=== PATIENT | female | born 1950 | race Caucasian/White ===

== ENCOUNTER 2021-07-27 21:31 | Inpatient (IN) | payer MEDICARE, OTHER ==
[~2021-07-27] VITALS: Ht 175.3 cm; Wt 110.0 kg
--- NOTE | 2021-07-27 21:35 | PHYS DOC ---
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 fib on Eliquis, presents the ED with complaints of left hip pain after patient slipped out of her chair. Patient was sitting at her sewing table table when she otoniel ched for something on the table and her chair with wheels, slipped out from underneath her. Patient landed in a seated position. Reports she did not hit her head or lose consciousness. Is complaining of right posterior thigh cramps. States she was unable to get up and immediately upon hitting the floor lost control of her bowels and bladder. No prior history of urinary or bowel incontinence or saddle anesthesia. Patient has never injured her back and has no associated midline back pain. Review of Systems: Review of Systems: Constitutional: Denies fever or chills. [] Eyes: Denies change in visual acuity. [] HENT: Denies nasal congestion or sore throat. [] Respiratory: Denies hemoptysis or shortness of breath. [] Cardiovascular: Denies chest pain or edema. [] GI: Denies abdominal pain, bloody stools or diarrhea. [] : Denies dysuria or hematuria Musculoskeletal: Denies midline back pain or joint deformity Integument: Denies rash or diaphoresis Neurologic: Denies neck pain, focal weakness or sensory changes. [] Endocrine: Denies polyuria or polydipsia. [] Lymphatic: Denies swollen glands. [] Psychiatric: Denies depression or anxiety. [] Heart Score: C/O Chest Pain: No Risk Factors: Risk Factors: DM, Current or recent (<one month) smoker, HTN, HLP, family hi story of CAD, obesity. Risk Scores: Score 0 - 3: 2.5% MACE over next 6 weeks - Discharge Home Score 4 - 6: 20.3% MACE over next 6 weeks - Admit for Clinical Observation Score 7 - 10: 72.7% MACE over next 6 weeks - Early Invasive Strategies Physical Exam: PE: Constitutional: Well developed, well nourished, no acute distress, non-toxic appearance. HENT: Normocephalic, atraumatic, no hemotympanum, no hematoma, no evidence of extracranial trauma Eyes: Pulls equal and reactive, EOMI, conjunctiva normal, no discharge. Neck: Normal range of motion, supple, no midline neck pain Cardiovascular: S1/2 present, regular rhythm Lungs & Thorax: Speaking in full sentences, bilateral equal chest rise, no tachy pnea or increased work of breathing Abdomen: soft, no tenderness, obese, no distention Skin: Warm, dry, no erythema, no rash, no bruising Back: No midline spinal step-offs or tenderness, no CVA tenderness, intact rectal tone with no saddle anesthesia on physical exam/log rolled on each side, reports pain over left ischial tuberosity-cannot visualize any bruising, cannot worsen her right posterior thigh cramp Extremities: no cyanosis, no unilateral lower extremity edema Neurologic: GCS15, normal motor function, normal sensory function, no focal deficits noted. [] Psychologic: Affect normal, judgement normal, mood normal. [] EKG: EK A. fib 91 bpm, left axis deviation, normal intervals, no obvious T wave inversion, ST elevation or ST depression, no active chest pain -Performed after patient started dry heaving, 2338 defibrillation 100 bpm, left axis deviation, QTC 473, no obvious ST elevations, ST depressions or T wave inversions, no active chest pain Radiology/Procedures: Radiology/Procedures: IMAGING REPORT Signed PATIENT: CASSIA HAMILTON ACCOUNT: [id number] : 1950 LOCATION: ER AGE: 71 SEX: F EXAM STATUS: REG ER ORD. PHYSICIAN: MARYELLEN GAONA DO REASON: n/v, PROCEDURE: CT HEAD AND CERVICAL SPINE WO RS Compliance Statement: One or more of the following individualized dose reduction techniques were utilized for this examination: 1. Automated exposure control 2. Adjustment of the mA and/or kV according to patient size 3. Use of iterative reconstruction technique CT head and cervical spine without contrast 07/27/2021 12:08 AM INDICATION: Nausea and vomiting COMPARISON: CT head 11/25/2020 TECHNIQUE: Multiple axial CT images of the head were obtained from skull base through the vertex without intravenous contrast. Multiple axial CT images of the cervical spine were obtained without intravenous contrast. Coronal and sagittal reformats are provided. FINDINGS: Head: There is a right cerebral convexity subdural hematoma measuring maximally 9 mm in thickness. Extensive subarachnoid hemorrhage identified along the right frontal, parietal and temporal sulci. There is no significant midline shift. Ventricles are normal in morphology without hydrocephalus. No significant midline shift. There is minimal anterior parafalcine subdural hemorrhage measuring maximally 4 mm. Layering subdural identified along the right tentorium. Posterior fossa is otherwise normal. Suboccipital decompression from prior history of Chiari. Visualized portions of the orbits are normal. Paranasal sinuses are well aerat ed. Mastoid air cells are well aerated. Scalp and calvaria are normal. Cervical spine: Alignment of the cervical spine is normal. Reversal the normal cervical lordosis without spondylolisthesis. Skull base is intact. Craniocervical junction is decompressed. Atlantoaxial articulation is normal. Vertebral body heights are maintained without evidence for acute fracture. There is either incomplete fusion of posterior arch of C1 versus postsurgical resection. Mild to moderate facet arthropathy. Mild multilevel osseous neuroforaminal stenosis. No significant osseous spinal canal stenosis. Transverse foramen are intact. There is no prevertebral soft tissue swelling. Thyroid gland is normal in appearance. Visualized portions of the lung apices are normal without evidence for suspicious pulmonary nodule or infiltrate. IMPRESSION: 1. Right frontal convexity subdural hematoma without significant midline shift. Extensive subarachnoid hemorrhage identified along the right frontal, parietal and temporal sulci, favoring posttraumatic etiology. 2. Suboccipital decompression post surgical changes are identified. No acute fracture or malalignment of the cervical spine. FOR INTERNAL CODING PURPOSES Critical result: Findings discussed with MARYELLEN GAONA DO at 07/28/2021 12:39 AM. RESULT CODE: (C) Electronically signed by: Mariam Arroyo MD (07/28/2021 12:52 AM) [facility] DICTATED and SIGNED BY: MARIAM ARROYO MD DATE: 07/28/21 [id number] IMAGING REPORT Signed PATIENT: CASSIA HAMILTON ACCOUNT: [id number] : 1950 LOCATION: ER AGE: 71 SEX: F EXAM STATUS: REG ER ORD. PHYSICIAN: MARYELLEN GAONA DO REASON: n/v PROCEDURE: PORTABLE CHEST 1V XR CHEST 1V 07/27/2021 11:41 PM INDICATION: Nausea and vomiting COMPARISON: 07/27/2021 TECHNIQUE: Portable frontal view of the chest is provided. FINDINGS: The cardiomediastinal silhouette is within normal limits. Mild interstitial changes appear stable. No new consolidative change. Calcified atheromatous plaque involving the thoracic aorta. Tracheobronchial calcifications are present. There are no significant pleural effusions. There is no pulmonary vascular congestion. No pneumothorax. No suspicious osseous abnormality. IMPRESSION: There is no acute cardiopulmonary process. Electronically signed by: Mariam Arroyo MD (07/28/2021 12:08 AM) [facility] DICTATED and SIGNED BY: MARIAM ARROYO MD DATE: 07/28/21 [id number] 0 IMAGING REPORT Signed PATIENT: CASSIA HAMILTON ACCOUNT: [id number] : 1950 LOCATION: ER AGE: 71 SEX: F EXAM STATUS: REG ER ORD. PHYSICIAN: MARYELLEN GAONA DO REASON: left buttock pain PROCEDURE: HIP BILATERAL WITH PELVIS EXAM: Frontal pelvis with bilateral two-view hip. HISTORY: Hip/buttock pain. COMPARISON: None. FINDINGS: There limitations from underpenetration. No fractures are identified within the pelvis or either proximal femur. The joint spaces of both hips appear maintained. A metallic object projects over the right sacral ala, likely overlying the patient. IMPRESSION: 1. No fracture or clear degenerative change. Electronically signed by: Santiago Mendosa MD (07/27/2021 11:21 PM) [facility] DICTATED and SIGNED BY: NISHI MENDOSA MD DATE: 07/27/21 [id number] IMAGING REPORT Signed PATIENT: CASSIA HAMILTON ACCOUNT: [id number] : 1950 LOCATION: ER AGE: 71 SEX: F EXAM STATUS: REG ER ORD. PHYSICIAN: MARYELLEN GAONA DO REASON: n/v, OMNI 300 60 ML IV PROCEDURE: CT ABD PELV W/ IV CONTRST ONLY PQRS Compliance Statement: One or more of the following individualized dose reduction techniques were utilized for this examination: 1. Automated exposure control 2. Adjustment of the mA and/or kV according to patient size 3. Use of iterative reconstruction technique CT abdomen/pelvis with contrast 07/27/2021 12:08 AM INDICATION: Nausea and vomiting. Intracranial hemorrhage. COMPARISON: CT abdomen/pelvis 10/17/2019 TECHNIQUE: Multiple axial CT images of the abdomen and pelvis were obtained after the intravenous administration of 60 mL Omnipaque 300. Coronal and sagittal reformats are provided. FINDINGS: There is subsegmental atelectasis at the left lung base. Heart size within normal limits. Nodular appearance of the hepatic parenchyma suggests underlying cirrhosis. Hypoattenuating lesion within the spleen measures 2.4 cm. Adrenal glands are normal in appearance. Pancreas is normal. Cholelithiasis. No adjacent inflammation. Abdominal aorta is normal in course and caliber. Mild calcified atheromatous plaque. No pathologically enlarged lymph nodes in abdomen and pelvis. There is no free fluid or free intraperitoneal air. Moderate to advanced diverticulosis. No adjacent inflammation is identified. Small and large bowel are normal in caliber. There is no evidence for bowel obstruction. There are no pericolonic inflammatory changes. A normal, nondilated appendix is visualized without adjacent inflammatory changes. The kidneys enhance symmetrically. There is no suspicious renal mass. There is no hydronephrosis. There are no suspected calculi within the kidneys, ureters or urinary bladder. Urinary bladder is within normal limits in degree of distention. Calcified uterine fibroid is identified measuring 1.7 cm in the fundus of the uterus. No suspicious adnexal mass. No significant osseous abnormality is identified. IMPRESSION: 1. No bowel obstruction or inflammation. Advanced diverticulosis without adjacent inflammation. 2. Cholelithiasis. 3. Cirrhosis. 4. Hypoattenuating lesion within the spleen measures 2.4 cm indeterminate. The absence of underlying malignancy, consideration may be given for a hemangioma or lymphangioma. This finding is stable from 10/17/2019 and favors benign etiology. Electronically signed by: Mariam Arroyo MD (07/28/2021 1:04 AM) [facility] DICTATED and SIGNED BY: MARIAM ARROYO MD DATE: 07/28/21 [id number] Course & Med Decision Making: Course & Med Decision Making Pertinent Labs and Imaging studies reviewed. (See chart for details) On reevaluation after x-ray imaging patient with persistent nausea and vomiting and does report a mild headache but states "this is from coughing." Due to this and being on Eliquis, CT head, neck, abdomen & pelvis was ordered. CT head findings were surprising given no external signs of head trauma. at bedside confirms that patient fell out of her chair and was found in the seated position complaining of dizziness immediately afterwards. EMS reported there was no head injury. Patient adamantly denies any blunt head injury. Patient was seen at on July 21 for epistaxis but does not recall any recent head or neck injury. I spoke with Marli for Dr. Dumont, neurosurgery who recommended to maintain systolic blood pressure under 140, neuro checks hourly, ICU admission, anticoagulant reversal and to call neurosurgery if there should be any change in patient's mental status. Patient GCS 15, NIHSS0. Emesis controlled. Nicardipine drip ordered and pharmacy to order PCC at 25 U/kg, maximum 2500 units. Will admit to ICU for further medical management. Full neurosurgery consultation pending. Patient stable time of admission and agrees with this plan. I have spoken with the patient and/or caregivers- at bedside. I have explained the patient's condition, diagnosis and treatment plan based on the information available to me at this time. I have answered the patient's and/or caregivers questions and answered any concerns. The patient and/or caregivers have as good an understanding of the patient's diagnosis, condition and tr eatment plan as can be expected at this point. The patient has been stabilized within the capability of the emergency department. The patient will be transported for further care and management or will be moved to an observation or inpatient service. I have communicated with the staff or medical practitioner taking over this patient's care. Critical Care: Authorized and Performed by: Maryellen Gaona DO Total critical care time: approximately 45 minutes Due to a high probability of clinically significant, life threatening deterioration, the patient required my highest level of preparedness to intervene emergently and I personally spent this critical care time directly and personally managing the patient. This critical care time included obtaining a history; examining the patient; pulse oximetry; ventilator management if necessary; ordering and review of studies; arranging urgent treatment with development of a management plan; evaluation of patient's response to treatment; frequent reassessment; discussion with patient/family; and, discussions with other providers. This critical care time was performed to assess and manage the high probability of imminent, life-threatening deterioration that could result in multi-organ failure. It was exclusive of separately billable procedures and treating other patients and teaching time. Please see MDM section and the rest of the note for further information on patient assessment and treatment. Dragon Disclaimer: Dragon Disclaimer: This electronic medical record was generated, in whole or in part, using a voice recognition dictation system. Departure Departure Impression: Primary Impression: SDH (subdural hematoma) Additional Impressions: SAH (subarachnoid hemorrhage) Elevated liver enzymes Cirrhosis Disposition: ADMITTED INPATIENT Admitting Physician: DESHAUN (Dr. Pimentel) Condition[facility] Suzie GU Jul 27, 2021 21:35
[2021-07-27] MEDS ORDERED: diazePAM 5 MG TABLET PO ONE (22:00)
--- NOTE | 2021-07-27 23:22 | RAD ---
EXAM: CHEST ONE VIEW. HISTORY: Chest pain. COMPARISON: None. FINDINGS: A frontal view of the chest is obtained. There are no confluent infiltrates. There is no pneumothorax or pleural effusion. The heart is not en larged. There are atherosclerotic calcifications of the aorta. IMPRESSION: 1. No confluent infiltrates. Electronically signed by: Santiago Mendosa MD (07/27/2021 11:19 PM) [facility]
--- NOTE | 2021-07-27 23:24 | RAD ---
EXAM: Frontal pelvis with bilateral two-view hip. HISTORY: Hip/buttock pain. COMPARISON: None. FINDINGS: There limitations from underpenetration. No fractures are identified within the pelvis or e ither proximal femur. The joint spaces of both hips appear maintained. A metallic object projects ove r the right sacral ala, likely overlying the patient. IMPRESSION: 1. No fracture or clear degenerative change. Electronically signed by: Santiago Mendosa MD (07/27/2021 11:21 PM) [facility]
[2021-07-27] MEDS ORDERED: ONDANSETRON PF 4 MG/2 ML VIAL. IVP ONE (23:30)
[2021-07-27 23:44] LABS: BASO # 0.1 x10^3/uL (0.0-0.2); BASO % 1 % (0-3); EOS # 0.1 x10^3/uL (0.0-0.7); EOS % 1 % (0-3); HEMATOCRIT 40.2 % (36.0-47.0); HEMOGLOBIN 12.9 g/dL (12.0-15.5); LYMPH # 2.7 x10^3/uL (1.0-4.8); LYMPH % 24 % (24-48); MEAN CORPUSCULAR HEMOGLOBIN 29 pg (25-35); MEAN CORPUSCULAR HGB CONC 32 g/dL (31-37); MEAN CORPUSCULAR VOLUME 91 fL (79-100); MONO # 0.8 x10^3/uL (0.0-1.1); MONO % 7 % (0-9); NEUT # 7.7 x10^3/uL (1.8-7.7); NEUT % 68 % (31-73); PLATELET COUNT 210 x10^3/uL (140-400); RED BLOOD COUNT 4.41 x10^6/uL (3.50-5.40); RED CELL DISTRIBUTION WIDTH 24.1 % (11.5-14.5); WHITE BLOOD COUNT 11.3 x10^3/uL (4.0-11.0)
--- NOTE | 2021-07-27 23:49 | EKG ---
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
[2021-07-27 23:57] LABS: CALCIUM 9.8 mg/dL (8.5-10.1); GFR 54.7
[2021-07-28] VITALS (22 sets, daily range): BP systolic 107–162; BP diastolic 50–80
[2021-07-28 00:03] LABS: ALBUMIN 3.6 g/dL (3.4-5.0); ALBUMIN/GLOBULIN RATIO 0.8 (1.0-1.7); MAGNESIUM 1.7 mg/dL (1.8-2.4); TOTAL BILIRUBIN 0.4 mg/dL (0.2-1.0)
[2021-07-28 00:05] LABS: ANISOCYTOSIS MOD; HYPOCHROMIA SLIGHT; PLT ESTIMATE ADEQUATE (ADEQUATE)
--- NOTE | 2021-07-28 00:10 | RAD ---
XR CHEST 1V 07/27/2021 11:41 PM INDICATION: Nausea and vomiting COMPARISON: 07/27/2021 TECHNIQUE: Portable frontal view of the chest is provided. FINDINGS: The cardiomediastinal silhouette is within normal limits. Mild interstitial changes appear stable. No new consolidative change. Calcified atheromatous plaque involving the thoracic aorta. Tracheobronchi al calcifications are present. There are no significant pleural effusions. There is no pulmonary vascular congestion. No pneumothora x. No suspicious osseous abnormality. IMPRESSION: There is no acute cardiopulmonary process. Electronically signed by: Micaela Garvey MD (07/28/2021 12:08 AM) [facility]
[2021-07-28] MEDS ORDERED: IOHEXOL 300 MG/ML 100ML VIAL. IV ONE (00:15)
[2021-07-28] MEDS ORDERED: CONTRAST GIVEN. MC PRN (00:15)
--- NOTE | 2021-07-28 00:55 | RAD ---
PQRS Compliance Statement: One or more of the following individualized dose reduction techniques were utilized for this examinat ion: 1. Automated exposure control 2. Adjustment of the mA and/or kV according to patient size 3. Use of iterative reconstruction technique CT head and cervical spine without contrast 07/27/2021 12:08 AM INDICATION: Nausea and vomiting COMPARISON: CT head 11/25/2020 TECHNIQUE: Multiple axial CT images of the head were obtained from skull base through the vertex with out intravenous contrast. Multiple axial CT images of the cervical spine were obtained without intrav enous contrast. Coronal and sagittal reformats are provided. FINDINGS: Head: There is a right cerebral convexity subdural hematoma measuring maximally 9 mm in thickness. Extensiv e subarachnoid hemorrhage identified along the right frontal, parietal and temporal sulci. There is n o significant midline shift. Ventricles are normal in morphology without hydrocephalus. No significan t midline shift. There is minimal anterior parafalcine subdural hemorrhage measuring maximally 4 mm. Layering subdural identified along the right tentorium. Posterior fossa is otherwise normal. Suboccip ital decompression from prior history of Chiari. Visualized portions of the orbits are normal. Paranasal sinuses are well aerated. Mastoid air cells a re well aerated. Scalp and calvaria are normal. Cervical spine: Alignment of the cervical spine is normal. Reversal the normal cervical lordosis without spondylolist hesis. Skull base is intact. Craniocervical junction is decompressed. Atlantoaxial articulation is no rmal. Vertebral body heights are maintained without evidence for acute fracture. There is either incomplete fusion of posterior arch of C1 versus postsurgical resection. Mild to moderate facet arthropathy. Mild multilevel osseous neuroforaminal stenosis. No significant o sseous spinal canal stenosis. Transverse foramen are intact. There is no prevertebral soft tissue swelling. Thyroid gland is normal in appearance. Visualized port ions of the lung apices are normal without evidence for suspicious pulmonary nodule or infiltrate. IMPRESSION: 1. Right frontal convexity subdural hematoma without significant midline shift. Extensive subarachnoi d hemorrhage identified along the right frontal, parietal and temporal sulci, favoring posttraumatic etiology. 2. Suboccipital decompression post surgical changes are identified. No acute fracture or malalignment of the cervical spine. FOR INTERNAL CODING PURPOSES Critical result: Findings discussed with RUTH GAONA DO at 07/28/2021 12:39 AM. RESULT CODE: (C) Electronically signed by: Micaela Garvey MD (07/28/2021 12:52 AM) [facility]
--- NOTE | 2021-07-28 01:06 | RAD ---
PQRS Compliance Statement: One or more of the following individualized dose reduction techniques were utilized for this examinat ion: 1. Automated exposure control 2. Adjustment of the mA and/or kV according to patient size 3. Use of iterative reconstruction technique CT abdomen/pelvis with contrast 07/27/2021 12:08 AM INDICATION: Nausea and vomiting. Intracranial hemorrhage. COMPARISON: CT abdomen/pelvis 10/17/2019 TECHNIQUE: Multiple axial CT images of the abdomen and pelvis were obtained after the intravenous adm inistration of 60 mL Omnipaque 300. Coronal and sagittal reformats are provided. FINDINGS: There is subsegmental atelectasis at the left lung base. Heart size within normal limits. Nodular chau earance of the hepatic parenchyma suggests underlying cirrhosis. Hypoattenuating lesion within the sp ashlee measures 2.4 cm. Adrenal glands are normal in appearance. Pancreas is normal. Cholelithiasis. No adjacent inflammation. Abdominal aorta is normal in course and caliber. Mild calcified atheromatous plaque. No pathologicall y enlarged lymph nodes in abdomen and pelvis. There is no free fluid or free intraperitoneal air. Mod erate to advanced diverticulosis. No adjacent inflammation is identified. Small and large bowel are n ormal in caliber. There is no evidence for bowel obstruction. There are no pericolonic inflammatory c hanges. A normal, nondilated appendix is visualized without adjacent inflammatory changes. The kidneys enhance symmetrically. There is no suspicious renal mass. There is no hydronephrosis. The re are no suspected calculi within the kidneys, ureters or urinary bladder. Urinary bladder is within normal limits in degree of distention. Calcified uterine fibroid is identified measuring 1.7 cm in t he fundus of the uterus. No suspicious adnexal mass. No significant osseous abnormality is identified . IMPRESSION: 1. No bowel obstruction or inflammation. Advanced diverticulosis without adjacent inflammation. 2. Cholelithiasis. 3. Cirrhosis. 4. Hypoattenuating lesion within the spleen measures 2.4 cm indeterminate. The absence of underlying malignancy, consideration may be given for a hemangioma or lymphangioma. This finding is stable from 10/17/2019 and favors benign etiology. Electronically signed by: Micaela Garvey MD (07/28/2021 1:04 AM) [facility]
[2021-07-28] MEDS: IV NORMAL SALINE 1000ML BAG 1,000 ML IV SCH ×2 (01:07→14:20)
[2021-07-28] MEDS ORDERED: ONDANSETRON PF 4 MG/2 ML VIAL. IVP PRN (01:15)
[2021-07-28 01:21] LABS: PROTHROMBIN TIME PATIENT 15.1 SEC (11.7-14.0)
[2021-07-28 01:27] LABS: D-DIMER 2.92 ug/mlFEU (0.00-0.50)
[2021-07-28] MEDS ORDERED: STERILE WATER IV ONE (01:30)
[2021-07-28] MEDS ORDERED: [UNRECOGNIZED DRUG - OTHER] IV ONE (01:30)
[2021-07-28] MEDS ORDERED: HUM PROTHROMBIN CPLX IV ONE (01:30)
[2021-07-28] MEDS ORDERED: HYDROmorphone 2 MG/ML INJ. ONE (01:50)
[2021-07-28] MEDS ORDERED: HYDROmorphone 2 MG/ML INJ. IVP ONE (02:00)
[2021-07-28] MEDS ORDERED: ONDANSETRON PF 4 MG/2 ML VIAL. IVP ONE (02:00)
[2021-07-28] MEDS ORDERED: METOCLOPRAMIDE HCL 10 MG/2 ML VIAL. IVP ONE (02:00)
--- NOTE | 2021-07-28 02:19 | RAD ---
PQRS Compliance Statement: One or more of the following individualized dose reduction techniques were utilized for this examinat ion: 1. Automated exposure control 2. Adjustment of the mA and/or kV according to patient size 3. Use of iterative reconstruction technique CT head without contrast 07/28/2021 1:53 AM INDICATION: Nausea and vomiting. Worsening headache COMPARISON: CT head 07/28/2021 TECHNIQUE: Multiple axial CT images of the head were obtained from skull base through the vertex with out intravenous contrast. FINDINGS: Head: Evaluation is limited given recent contrast administration. There is new subdural hematoma identified along the left cerebral vertex measuring 6 mm in maximal th ickness. There is redemonstration of a diffuse subdural hematoma along the right frontal convexity. There is i ncreased hypoattenuation along the vertex suggestive of evolving hemorrhage. No definite hematoma exp ansion as compared to prior examination. Similar degree of subarachnoid hemorrhage throughout the rig ht frontal, parietal and temporal lobes. There may be subtle increased subdural blood products identi fied along the posterior falx and tentorium cerebellum. No increased mass effect or midline shift. No uncal herniation. No tonsillar herniation is identified. Suboccipital craniotomy changes are present . Visualized portions of the orbits are normal. Paranasal sinuses are well aerated. Mastoid air cells a re well aerated. Scalp and calvaria are normal. IMPRESSION: There is new subdural hematoma identified on the left which is isodense compatible with hyperacute bl ood measuring up to 6 mm in thickness. There is associated mass effect without midline shift. Redemonstration of diffuse subdural and subarachnoid hemorrhage predominantly involving the right cer ebral hemisphere. There may be subtle increased blood products identified along the falx and tentoriu m although evaluation is degraded by recent contrast administration. FOR INTERNAL CODING PURPOSES Critical result: Findings discussed with RUTH GAONA DO at 07/28/2021 2:15 AM. RESULT CODE: (C) Electronically signed by: Micaela Garvey MD (07/28/2021 2:17 AM) [facility]
--- NOTE | 2021-07-28 02:24 | EKG ---
[facility] [address] [place] [address] Test Date: 2021-07-27 Test Time: 23:38:24 Pat Name: CASSIA HAMILTON Department: Room: Gender: F Foreign Service Officer: : 1950 Requested By: RUTH GAONA Order Number: [id number] Reading MD: Measurements Intervals [place] Rate: 100 P: MA: QRS: -13 QRSD: 80 T: -90 QT: 364 QTc: 473 Interpretive Statements IRREGULAR RHYTHM, NO P-WAVE FOUND LEFTWARD AXIS ST & T ABNORMALITY, CONSIDER HIGH LATERAL ISCHEMIA OR LEFT VENTRICULAR STRAIN INFERIOR ISCHEMIA OR LEFT VENTRICULAR STRAIN ABNORMAL ECG RI6.02 No previous ECG available for comparison
[2021-07-28] MEDS ORDERED: MAGN200T PO (05:09)
[2021-07-28] MEDS ORDERED: INSU100I13 SQ (05:09)
[2021-07-28] MEDS ORDERED: SITA1TAB11 PO (05:09)
[2021-07-28] MEDS ORDERED: GLIP5TAB10 PO (05:09)
[2021-07-28] MEDS ORDERED: SIMV10TA15 PO (05:09)
[2021-07-28] MEDS ORDERED: PROP15DR EACHEYE (05:09)
[2021-07-28] MEDS ORDERED: DILT180C86 PO (05:09)
[2021-07-28] MEDS ORDERED: LOSA1TAB22 PO (05:09)
[2021-07-28] MEDS ORDERED: APIX5TAB PO (05:09)
[2021-07-28] MEDS ORDERED: LEVO150C3 PO (05:09)
[2021-07-28] MEDS ORDERED: FLUT16SP NS (05:09)
[2021-07-28] MEDS ORDERED: CITA20TA6 PO (05:09)
[2021-07-28] MEDS ORDERED: IOHEXOL 300 MG/ML 100ML VIAL. ONE (06:25)
--- NOTE | 2021-07-28 11:40 | RAD ---
CT HEAD/BRAIN WO History: Reason: reevaluate hematoma and hemmorhage / Spl. Instructions: / History: Comparison: July 28, 2021 Technique: Noncontrast CT imaging was performed of the head. Exposure: One or more of the following individualized dose reduction techniques were utilized for thi s examination: 1. Automated exposure control 2. Adjustment of the mA and/or kV according to patient size 3. Use of iterative reconstruction technique. Findings: Right cervical convexity acute subdural hematoma, similar compared to prior. Maximal thickness right parietal region 0.9 cm, unchanged. Small subdural hematoma along the right tentorium and along the po sterior falx. Scattered right cerebral subarachnoid hemorrhage involving the frontal, parietal and oc cipital regions. Minimal leftward midline shift measures 0.2 cm, unchanged. Unchanged left cerebral c onvexity device attenuation subdural hematoma. Maximal thickness 0.6 cm. No hydrocephalus. Prior postoperative changes suboccipital decompression. Imaged orbits are unremarkable. Imaged paranasal sinuses and mastoid air cells are clear. No acute ca lvarial fracture. Impression: 1. Bilateral subdural hematomas, similar compared to prior. 2. Unchanged right subarachnoid hemorrhage. Electronically signed by: Joaquin Justin DO (07/28/2021 11:38 AM) [facility]
--- NOTE | 2021-07-28 12:09 | HP ---
DATE OF SERVICE: 07/28/2021 ADMIT DATE: 07/28/2021 CHIEF COMPLAINT: Fall with head trauma. HISTORY OF PRESENT ILLNESS: The patient is a pleasant 71-year-old female who is on Eliquis anticoagulation. She apparently slipped out of her chair and hit the back of her head and coccygeal region. Imaging studies are showing a subarachnoid hemorrhage and a subdural hematoma. I discussed the case with ER physician. We are going to admit the patient to the ICU and consulting Neurosurgery. PAST MEDICAL HISTORY: Chronic anticoagulation, on Eliquis, hypertension, depression, anxiety, allergic rhinitis, constipation, diabetes, hypothyroidism. ALLERGIES: PENICILLIN, SULFA, FLECAINIDE, GABAPENTIN, NITROFURANTOIN AND RANITIDINE. FAMILY HISTORY: Diabetes. SOCIAL HISTORY: She does not drink, smoke or take drugs. MEDICATIONS: Reviewed. She is on 12, please refer to the MRAD. REVIEW OF SYSTEMS: GENERAL: No history of weight change, weakness or fevers. SKIN: No bruising, hair changes or rashes. EYES: No blurred, double or loss of vision. NOSE AND THROAT: No history of nosebleeds, hoarseness or sore throat. HEART: No history of palpitations, chest pain or shortness of breath on exertion. LUNGS: Denies cough, hemoptysis, wheezing or shortness of breath. GASTROINTESTINAL: Denies changes in appetite, nausea, vomiting, diarrhea or constipation. GENITOURINARY: No history of frequency, urgency, hesitancy or nocturia. NEUROLOGIC: Denies history of numbness, tingling, tremor or weakness. PSYCHIATRIC: No history of panic, anxiety or depression. ENDOCRINE: No history of heat or cold intolerance, polyuria or polydipsia. EXTREMITIES: Denies muscle weakness, joint pain, pain on walking or stiffness. PHYSICAL EXAMINATION: VITALS: Within normal limits and are stable. GENERAL: No apparent distress. Alert and oriented. HEENT: Normal cephalic atraumatic, external auditory canals are patent. EYES: Extraocular muscles are intact, pupils are equally round and reactive to light and accommodation. MUSCULOSKELETAL: Well developed, well nourished, good range of motion. ENDOCRINE: No thyromegaly was palpated. LYMPHATICS: No cervical chain or axillary nodes were noted. HEMATOPOIETIC: No bruising. NECK: Supple, no JVD, no thyromegaly was noted. LUNGS: Clear to auscultation in all lung silva without rhonchi or wheezing. HEART: RRR, S1, S2 present. Peripheral pulses intact, no obvious murmurs were noted. ABDOMEN: Soft, nontender. Positive bowel sounds no organomegaly, normal bowel sounds. EXTREMITIES: Without any cyanosis, clubbing, or edema. Pedal pulses intact, Homans sign is negative. NEUROLOGIC: Normal speech, normal tone. A and O x 3, moves all extremities, no obvious focal deficits. PSYCHIATRIC: Normal affect, normal mood. Stable. SKIN: No ulcerations or rashes, good skin turgor, no jaundice. VASCULAR: Good capillary refill, neurovascular bundle appears to be intact. LABORATORY DATA: White count is 11, hemoglobin is 12.9. CT of the head shows subarachnoid hemorrhage and subdural hematoma. INR is 1.2. COVID testing is negative. ASSESSMENT AND PLAN: Fall with head trauma with subarachnoid bleed and subdural hematoma. The patient has been admitted to the ICU. We are doing careful monitoring in the ICU and frequent neuro checks. We have consulted Neurosurgery. Suspect she will get repeat a CAT scan. We are holding her anticoagulation. Continue her other home medicines. Deep venous thrombosis prophylaxis. Full code. Physical therapy, occupational therapy. P.r.stephania Nair. We have her on her a nicardipine drip. KARTHIK DR: PRAMOD/elizabeth TID: [id number]
--- NOTE | 2021-07-28 12:09 | PDOC ---
Provider Note Date of Service: DATE: 07/28/21 TIME: 12:03 Provider Note Patient seen and examined consulted for SDH/ SAH, s/p fall but did not strike head on Eliquis c/o mild headache normal neuro exam CT with predominately right sided SDH, on f/u CT head-Bilateral subdural hematomas, similar compared to prior, Unchanged right subarachnoid hemorrhage keep in ICU neuro checks BP control scds ok to feed now D/W RN Justifications for Admission Other Justification NAIDA HUGO MD Jul 28, 2021 12:09
--- NOTE | 2021-07-28 14:17 | PDOC2 ---
LEYDI ARGUETA COPPER PLATER 07/28/21 1417: CARDIAC CONSULT DATE OF CONSULT Date of Consult DATE: 07/28/21 TIME: 13:50 REASON FOR CONSULT Reason for Consult: AFIB, off Eliquis due to SDH REFERRING PHYSICIAN Referring Physician: Dr. Conde SOURCE Source: Chart review, Patient HISTORY OF PRESENT ILLNESS HISTORY OF PRESENT ILLNESS This is a 71 yo female who presented secondary to hip pain after a fall. Patient reports she was sitting at sewing machine in roller chair and leaded forward and chair slide out from under her causing her to fall to the ground on her bottom in a sitting position. Had complaints of hip and tailbone pain. Denies hitting her head or LOC. Did develop mild PEREIRA and dizziness. CT head with right sided SDH, on f/u CT head-Bilateral subdural hematomas, similar compared to prior, Unchanged right subarachnoid hemorrhage. She has a history of AFIB and is on OAC with Eliquis. Follows with [facility], Dr. Alexandre. PAST MEDICAL HISTORY Cardiovascular: AFIB, HTN, Hyperlipidemia CENTRAL NERVOUS SYSTEM: CVA, Other (Arnold Chiari malformation s/p surgery) GI: GERD, GI bleed, Peptic Ulcer disease Heme/Onc: Anemia NOS Psych: Depression Endocrine: Diabetes, Hypothyroidism PAST SURGICAL HISTORY Past Surgical History: No pertinent history FAMILY HISTORY Family History: Diabetes SOCIAL HISTORY Smoke: No ALCOHOL: none Drugs: None Lives: with Family CURRENT MEDICATIONS CURRENT MEDICATIONS Current Medications Medications (Trade) Dose Ordered Sig/Sanjuana Route PRN Reason Start Time Stop Time Status Last Admin Dose Admin Ondansetron HCl (Zofran) 8 mg 1X ONCE IVP 07/27/21 23:30 07/27/21 23:31 DC 07/27/21 23:39 Iohexol (Omnipaque 300 Mg/ml) 60 ml 1X ONCE IV 07/28/21 00:15 07/28/21 00:16 DC 07/28/21 00:40 Sodium Chloride 1,000 ml @ 75 mls/hr [id number] IV 07/28/21 01:00 07/29/21 00:59 07/28/21 01:07 Nicardipine HCl 50 mg/Sodium Chloride 250 ml @ 25 mls/hr CONT PRN IV PER PROTOCOL 07/28/21 01:00 07/28/21 11:28 Prothrombin Complex Concent (Human) 2500 unit/ Sterile Water 100 ml @ 8.4 mls/min ONCE ONCE IV 07/28/21 01:30 07/28/21 01:41 DC 07/28/21 01:40 Ondansetron HCl (Zofran) 4 mg 1X ONCE IVP 07/28/21 02:00 07/28/21 02:01 DC 07/28/21 01:53 Hydromorphone HCl (Dilaudid) 0.5 mg 1X ONCE IVP 07/28/21 02:00 07/28/21 02:01 DC 07/28/21 01:54 Metoclopramide HCl (Reglan Vial) 10 mg 1X ONCE IVP 07/28/21 02:00 07/28/21 02:01 DC 07/28/21 01:54 ALLERGIES ALLERGIES: Coded Allergies: Penicillins (Verified Allergy, Intermediate, HIVES, 07/27/21) nitrofurantoin (Verified Allergy, Intermediate, SWELLING, 07/27/21) flecainide (Verified Allergy, Unknown, 07/27/21) gabapentin (Verified Allergy, Unknown, 07/27/21) Sulfa (Sulfonamide Antibiotics) (Verified Adverse Reaction, Unknown, NAUSEA AND VOMITING, 07/27/21) ranitidine (Verified Adverse Reaction, Unknown, COUGH, 07/27/21) ROS Review of System 14 point ROS conducted with pertinent positives noted above in HPI PHYSICAL EXAM General: Alert, Oriented X3, Cooperative HEENT: Atraumatic Lungs: Clear to auscultation Heart: Other (IRRR; tele AFIB) Abdomen: Soft, No tenderness Extremities: No edema Skin: No breakdown, No significant lesion Neuro: Normal speech, Sensation intact Psych/Mental Status: Mental status NL, Mood NL MUSCULOSKELETAL: Osteoarthritic changes both hands VITALS/I&O VITALS/I&O: Vital Signs Date Time Temp Pulse Resp B/P (MAP) Pulse Ox O2 Delivery O2 Flow Rate FiO2 07/28/21 13:00 90 25 118/65 97 Nasal Cannula 2.0 07/28/21 12:00 98.9 98.9 I & O 07/27/21 07/27/21 07/28/21 15:00 23:00 07:00 Intake Total 100 ml Balance 100 ml LABS Lab: Laboratory Tests Test 07/27/21 23:32 07/28/21 00:57 07/28/21 01:30 07/28/21 05:20 White Blood Count 11.3 x10^3/uL (4.0-11.0) H Red Blood Count 4.41 x10^6/uL (3.50-5.40) Hemoglobin 12.9 g/dL (12.0-15.5) Hematocrit 40.2 % (36.0-47.0) Mean Corpuscular Volume 91 fL (79-100) Mean Corpuscular Hemoglobin 29 pg (25-35) Mean Corpuscular Hemoglobin Concent 32 g/dL (31-37) Red Cell Distribution Width 24.1 % (11.5-14.5) H Platelet Count 210 x10^3/uL (140-400) Neutrophils (%) (Auto) 68 % (31-73) Lymphocytes (%) (Auto) 24 % (24-48) Monocytes (%) (Auto) 7 % (0-9) Eosinophils (%) (Auto) 1 % (0-3) Basophils (%) (Auto) 1 % (0-3) Neutrophils # (Auto) 7.7 x10^3/uL (1.8-7.7) Lymphocytes # (Auto) 2.7 x10^3/uL (1.0-4.8) Monocytes # (Auto) 0.8 x10^3/uL (0.0-1.1) Eosinophils # (Auto) 0.1 x10^3/uL (0.0-0.7) Basophils # (Auto) 0.1 x10^3/uL (0.0-0.2) Platelet Estimate Adequate (ADEQUATE) Hypochromasia Slight Anisocytosis Mod Prothrombin Time 15.1 SEC (11.7-14.0) H Prothrombin Time INR 1.2 (0.8-1.1) H Activated Partial Thromboplast Time 46 SEC (24-38) H Fibrinogen 429 mg/dL (200-440) D-Dimer (Lizy) 2.92 ug/mlFEU (0.00-0.50) H Sodium Level 138 mmol/L (136-145) Potassium Level 4.0 mmol/L (3.5-5.1) Chloride Level 100 mmol/L (98-107) Carbon Dioxide Level 24 mmol/L (21-32) Anion Gap 14 (6-14) Blood Urea Nitrogen 19 mg/dL (7-20) Creatinine 1.0 mg/dL (0.6-1.0) Estimated GFR (Cockcroft-Gault) 54.7 BUN/Creatinine Ratio 19 (6-20) Glucose Level 247 mg/dL (70-99) H Calcium Level 9.8 mg/dL (8.5-10.1) Magnesium Level 1.7 mg/dL (1.8-2.4) L Total Bilirubin 0.4 mg/dL (0.2-1.0) Aspartate Amino Transferase (AST) 48 U/L (15-37) H Alanine Aminotransferase (ALT) 66 U/L (14-59) H Alkaline Phosphatase 94 U/L (46-116) Troponin I High Sensitivity 9 ng/L (4-50) 12 ng/L (4-50) 13 ng/L (4-50) SD-Fsb-V-Type Natriuretic Peptide 352 pg/mL (0-124) H Total Protein 8.0 g/dL (6.4-8.2) Albumin 3.6 g/dL (3.4-5.0) Albumin/Globulin Ratio 0.8 (1.0-1.7) L Lipase 101 U/L (73-393) SARS-CoV-2 Antigen (Rapid) Negative (NEGATIVE) Laboratory Tests 07/27/21 23:32 Laboratory Tests 07/27/21 23:32 ECHOCARDIOGRAM ECHOCARDIOGRAM 01/05/17 - 2-D + DOPPLER ECHOCARDIOGRAM Interpretation Summary Normal chamber sizes Left ventricular ejection fraction = 55% Unremarkable cardiac valve structures and function for age Pulmonary artery pressure = 28mmHg No significant pericardial effusion Study is similar to the prior study of 02/28/10 07/22/18 - LIMITED ECHOCARDIOGRAM Interpretation Summary Limited study halted due to patient discomfort. Normal LV cavity size with moderate concentric LVH. Normal LV systolic function. Normal RV size and function. Mild tricuspid valve regurgitation, otherwise normal valve structure and function. Mild dilation of the proximal ascending aorta. Estimated Peak Systolic PA Pressure 44 mmHg STRESS TEST STRESS TEST 08/02/18 - Procedure: D-SPECT MULTI GATED THALLIUM REGADENOSON MPI STRESS TEST SUMMARY/OPINION: This study is abnormal due to elevated lung uptake of radioisotope. There is also a partially fixed, partially reversible, small to moderate sized reversible anterior apical wall perfusion defect. This appears to be most consistent with breast tissue attenuation but a small area of ischemia cannot be effectively ruled out. Overall left ventricular systolic function is normal at 68%. There are no regional wall motion abnormalities present also suggesting that the defect is breast tissue attenuation. This study is compared to prior study dated October 28, 2007. On the previous study the images are not available for review. The calculated left ventricular ejection fraction was 65%. The previous study also suggested a partial reversibility in the anterior apical segment that was attributed to breast tissue attenuation. HEART CATH HEART CATH CARDIAC CATHETERIZATION REPORT DATE: 08/15/2018 SELECTIVE CORONARY ANGIOGRAPHY: Left main: A large caliber, short vessel, which arises normally from the left coronary sinus. It bifurcates into the left anterior descending artery, left circumflex artery. It appears to be free of any significant disease. Left anterior descending artery: A large caliber vessel which gives rise to a medium D1 and small D2 and D3 vessel. The LAD and diagonal vessel appears to be free of any significant disease. Left circumflex artery. A medium caliber vessel which gives rise to the small OM1 and a medium caliber OM2. It appears to be free of any significant disease. Right coronary artery: A medium caliber dominant vessel which arises normally from the right coronary sinus. It is bifurcating into PDA and PLV branches. Dr. Fonseca, my attending, was present and performed black portions of the procedure, and were available for the rest. ASSESSMENT: Angiographically normal coronary arteries as described above. LVEDP is borderline elevated. No significant gradient across the aortic valve on pullback. RECOMMENDATION: To continue aggressive lifestyle and risk factor modification. ASSESSMENT/PLAN ASSESSMENT/PLAN 1. Mechanical fall with bilateral subdural hematoma and right subarachnoid hemorrhage 2. Permanent AFIB; was on OAC with Eliquis. On Cardizem for rate control. Follows with Dr. Baldomero AUGUSTE. Echo 07/26 with preserved LV systolic function. LHC 08/23 with normal coronaries 3. Hypertensive urgency; on Cardene gtt as she was NPO 4. Hyperlipidemia; on statin 5. Diabetes, II 6. H/o CVA 7. H/o GIB 8. Hypomagnesemia 9. Mildly elevated LFTs 10. Hypothyroidism; on replacement Recommendations No OAC with SDH Resume Cardizem for rate control now that she has been cleared to take oral Titrate off Cardene Consider for outpatient LAAO Supportive care ANRIE LUBIN MD 07/28/212125: CARDIAC CONSULT ASSESSMENT/PLAN ASSESSMENT/PLAN The patient was seen and interviewed as well as examined at the bedside. The chart was reviewed. The case was discussed. Agree with the plan of care. LEYDI ARGUETA APRN Jul 28, 2021 14:17 ARNIE LUBIN MD Jul 28, 2021 21:26
[2021-07-28] MEDS ORDERED: MAGNESIUM SULFATE 2GM 50 ML IV ONE (14:30)
--- NOTE | 2021-07-28 15:40 | NUR ---
SS following for discharge planning. SS reviewed pt chart and discussed with pt RN. Pt is from home with spouse and is currently requiring oxygen at two liters nasal canula. COVID19 negative. Pt on Eben muñoz. Cardiology and Dr. Conde following. SS will continue to follow for discharge planning.
[2021-07-28 16:48] LABS: BILIRUBIN,URINE NEGATIVE (NEG); CLARITY,URINE CLEAR; COLOR,URINE YELLOW; NITRITE,URINE NEGATIVE (NEG); PROTEIN,URINE NEGATIVE (NEG-TRACE); UROBILINOGEN,URINE 0.2 mg/dL (0.2 mg/dL)
[2021-07-28 17:08] LABS: HYALINE CASTS, URINE OCCASIONAL /HPF
[2021-07-28 17:09] LABS: BACTERIA,URINE MANY /HPF (0-FEW)
[2021-07-28 17:10] LABS: RBC,URINE 0 /HPF (0-2)
[2021-07-28] MEDS: MAGNESIUM OXIDE 400 MG TABLET PO SCH (21:01)
[2021-07-29] VITALS (15 sets, daily range): BP systolic 113–169; BP diastolic 57–98
[2021-07-29] MEDS: LEVOTHYROXINE 150 MCG TABLET PO SCH (05:21)
[2021-07-29] MEDS: hydroCHLOROthiazide 25 MG TABLET PO SCH (08:30)
[2021-07-29] MEDS: LOSARTAN POTASSIUM 50 MG TABLET. PO SCH (08:30)
--- NOTE | 2021-07-29 11:08 | PDOC ---
LEYDI ARGUETA REGISTERED RADIOLOGIC TECHNOLOGIST 07/29/21 1108: CARDIO Progress Notes Date and Time Date of Service 07/29/21 Time of Evaluation 1100 Subjective Subjective: No Chest Pain, No shortness of breath, No Palpitations, Other (c/o headache ) Vitals Vitals Vital Signs Date Time Temp Pulse Resp B/P (MAP) Pulse Ox O2 Delivery O2 Flow Rate FiO2 07/29/21 11:04 88 29 134/82 96 Room Air 07/29/21 07:25 98.2 98.2 07/29/21 06:00 2.0 Weight Weight [ ] Input and Output Intake and Output Intake and Output 07/29/21 07:00 Intake Total 600 ml Output Total 900 ml Balance -300 ml Intake Oral 600 ml Output Urine Total 900 ml # Voids 2 Laboratory Labs Laboratory Tests Test 07/28/21 16:40 07/28/21 17:33 Urine Color Yellow Urine Clarity Clear Urine pH 5.0 (<5.0-8.0) Urine Specific [place] 1.020 (1.000-1.030) Urine Protein Negative mg/dL (NEG-TRACE) Urine Glucose (UA) 250 mg/dL (NEG) Urine Ketones (Stick) Negative mg/dL (NEG) Urine Blood Negative (NEG) Urine Nitrite Negative (NEG) Urine Bilirubin Negative (NEG) Urine Urobilinogen Dipstick 0.2 mg/dL (0.2 mg/dL) Urine Leukocyte Esterase Small (NEG) Urine RBC 0 /HPF (0-2) Urine WBC 5-10 /HPF (0-4) Urine Squamous Epithelial Cells Mod /LPF Urine Bacteria Many /HPF (0-FEW) Urine Hyaline Casts Occasional /HPF Glucose (Fingerstick) 269 mg/dL (70-99) Physical Exam HEENT: Neck Supple W Full Motion Chest: Symmetric LUNGS: Clear to Auscultation Heart: irregularly irregular (AFIB, rate controlled ) Abdomen: Soft N/T Extremities: No Edema Neurology: alert, oriented, follow commands Assessment Assessment 1. Mechanical fall with bilateral subdural hematoma and right subarachnoid hemorrhage 2. Permanent AFIB; was on OAC with Eliquis. On Cardizem for rate control. Follows with Dr. Baldomero AUGUSTE. Echo 07/26 with preserved LV systolic function. LHC 08/23 with normal coronaries 3. Hypertensive urgency; off Cardene. BP better controlled 4. Hyperlipidemia; on statin 5. Diabetes, II 6. H/o CVA 7. Hypothyroidism; on replacement Recommendations No ASA or OAC with SDH Continue Cardizem for rate control Consider for outpatient LAAO. Will defer to primary rivet tester, Dr. Alexandre Supportive care Justicifation of Admission Dx: Justifications for Admission: Justification of Admission Dx: Yes Comments: subdural hematoma PAFIB ARNIE LUBIN MD 07/30/21 0729: CARDIO Progress Notes Plan Plan Late entry for 07/29/2021 The patient was seen and interviewed as well as examined at the bedside. The chart was reviewed. The case was discussed. Agree with the plan of care. LEYDI ARGUETA APRN Jul 29, 2021 11:08 ARNIE LUBIN MD Jul 30, 2021 07:29
--- NOTE | 2021-07-29 11:27 | PDOC ---
[employer] PROGRESS NOTE Date of Service DOS: DATE: 07/29/21 TIME: 11:26 Chief Complaint Chief Complaint Fall with subdural hematoma and subarachnoid hemorrhage Chronic anticoagulation, on Eliquis, hypertension, depression, anxiety, allergic rhinitis, constipation, diabetes, hypothyroidism. History of Present Illness History of Present Illness 07/29/2021 Patient seen exam She is up in the chair smiling She wants to go home Discussed with RN Chart reviewed Vitals/I&O Vitals/I&O: Vital Signs Date Time Temp Pulse Resp B/P (MAP) Pulse Ox O2 Delivery O2 Flow Rate FiO2 07/29/21 11:04 88 29 134/82 96 Room Air 07/29/21 07:25 98.2 98.2 07/29/21 06:00 2.0 I & O 07/28/21 07/28/21 07/29/21 15:00 23:00 07:00 Intake Total 600 ml Output Total 0 ml 900 ml Balance 0 ml -300 ml Physical Exam General: Alert, Oriented X3, Cooperative Heart: Other (IRRR; tele AFIB) Abdomen: Soft, No tenderness Extremities: No edema Skin: No breakdown, No significant lesion Labs Labs: Laboratory Tests Test 07/28/21 16:40 07/28/21 17:33 Urine Color Yellow Urine Clarity Clear Urine pH 5.0 (<5.0-8.0) Urine Specific [place] 1.020 (1.000-1.030) Urine Protein Negative mg/dL (NEG-TRACE) Urine Glucose (UA) 250 mg/dL (NEG) Urine Ketones (Stick) Negative mg/dL (NEG) Urine Blood Negative (NEG) Urine Nitrite Negative (NEG) Urine Bilirubin Negative (NEG) Urine Urobilinogen Dipstick 0.2 mg/dL (0.2 mg/dL) Urine Leukocyte Esterase Small (NEG) Urine RBC 0 /HPF (0-2) Urine WBC 5-10 /HPF (0-4) Urine Squamous Epithelial Cells Mod /LPF Urine Bacteria Many /HPF (0-FEW) Urine Hyaline Casts Occasional /HPF Glucose (Fingerstick) 269 mg/dL (70-99) Assessment and Plan Assessmemt and Plan Problems Medical Problems: (1) Cirrhosis Status: Acute (2) Elevated liver enzymes Status: Acute (3) SAH (subarachnoid hemorrhage) Status: Acute (4) SDH (subdural hematoma) Status: Acute Fall with subdural hematoma and subarachnoid hemorrhage Chronic anticoagulation, on Eliquis, hypertension, depression, anxiety, allergic rhinitis, constipation, diabetes, hypothyroidism. Plan Discharge if okay with neurosurgery Comment Review of Relevant I have reviewed the following items manohar (where applicable) has been applied. Medications: Current Medications Medications (Trade) Dose Ordered Sig/Sanjuana Route PRN Reason Start Time Stop Time Status Last Admin Dose Admin Magnesium Sulfate 50 ml @ 25 mls/hr 1X ONCE IV 07/28/21 14:30 07/28/21 16:29 DC 07/28/21 17:29 Diltiazem HCl (Cardizem 24hr Cd) 180 mg DAILY PO 07/29/21 09:00 07/29/21 08:31 Levothyroxine Sodium (Synthroid) 150 mcg DAILY06 PO 07/29/21 06:00 07/29/21 05:21 Hydrochlorothiazide (Hydrodiuril) 25 mg DAILY PO 07/29/21 09:00 07/29/21 08:30 Magnesium Oxide (Magnesium Oxide) 400 mg HS PO 07/28/21 21:00 07/28/21 21:01 Losartan Potassium (Cozaar) 100 mg DAILY PO 07/29/21 09:00 07/29/21 08:30 Justifications for Admission Other Justification DARION TIMMONS III DO Jul 29, 2021 11:27
--- NOTE | 2021-07-29 13:37 | PDOC ---
PROGRESS NOTES Date of Service DATE: 07/29/21 TIME: 13:28 Subjective Subjective sitting up in the chair eating lunch mild headache Objective Objective Vital Signs Date Time Temp Pulse Resp B/P (MAP) Pulse Ox O2 Delivery O2 Flow Rate FiO2 07/29/21 11:04 88 29 134/82 96 Room Air 07/29/21 07:25 98.2 98.2 07/29/21 06:00 2.0 Intake and Output 07/29/21 07:00 Intake Total 600 ml Output Total 900 ml Balance -300 ml Intake Oral 600 ml Output Urine Total 900 ml # Voids 2 Physical Exam General: Alert, Oriented X3, Cooperative, No acute distress Neuro: Normal speech, Strength at 5/5 X4 ext Assessment Assessment Problems Medical Problems: (1) Cirrhosis Status: Acute (2) Elevated liver enzymes Status: Acute (3) SAH (subarachnoid hemorrhage) Status: Acute (4) SDH (subdural hematoma) Status: Acute Plan Plan of Care ok to transfer to floor f/u CT head tomorrow, if ok could dc hold margarito D/W MARKUS Comment Review of Relevant I have reviewed the following items manohar (where applicable) has been applied. Labs Laboratory Tests Test 07/27/21 23:32 07/28/21 00:57 07/28/21 01:30 07/28/21 05:20 White Blood Count 11.3 x10^3/uL (4.0-11.0) Red Blood Count 4.41 x10^6/uL (3.50-5.40) Hemoglobin 12.9 g/dL (12.0-15.5) Hematocrit 40.2 % (36.0-47.0) Mean Corpuscular Volume 91 fL (79-100) Mean Corpuscular Hemoglobin 29 pg (25-35) Mean Corpuscular Hemoglobin Concent 32 g/dL (31-37) Red Cell Distribution Width 24.1 % (11.5-14.5) Platelet Count 210 x10^3/uL (140-400) Neutrophils (%) (Auto) 68 % (31-73) Lymphocytes (%) (Auto) 24 % (24-48) Monocytes (%) (Auto) 7 % (0-9) Eosinophils (%) (Auto) 1 % (0-3) Basophils (%) (Auto) 1 % (0-3) Neutrophils # (Auto) 7.7 x10^3/uL (1.8-7.7) Lymphocytes # (Auto) 2.7 x10^3/uL (1.0-4.8) Monocytes # (Auto) 0.8 x10^3/uL (0.0-1.1) Eosinophils # (Auto) 0.1 x10^3/uL (0.0-0.7) Basophils # (Auto) 0.1 x10^3/uL (0.0-0.2) Platelet Estimate Adequate (ADEQUATE) Hypochromasia Slight Anisocytosis Mod Prothrombin Time 15.1 SEC (11.7-14.0) Prothromb Time International Ratio 1.2 (0.8-1.1) Activated Partial Thromboplast Time 46 SEC (24-38) Fibrinogen 429 mg/dL (200-440) D-Dimer (Lizy) 2.92 ug/mlFEU (0.00-0.50) Sodium Level 138 mmol/L (136-145) Potassium Level 4.0 mmol/L (3.5-5.1) Chloride Level 100 mmol/L (98-107) Carbon Dioxide Level 24 mmol/L (21-32) Anion Gap 14 (6-14) Blood Urea Nitrogen 19 mg/dL (7-20) Creatinine 1.0 mg/dL (0.6-1.0) Estimated GFR (Cockcroft-Gault) 54.7 BUN/Creatinine Ratio 19 (6-20) Glucose Level 247 mg/dL (70-99) Calcium Level 9.8 mg/dL (8.5-10.1) Magnesium Level 1.7 mg/dL (1.8-2.4) Total Bilirubin 0.4 mg/dL (0.2-1.0) Aspartate Amino Transf (AST/SGOT) 48 U/L (15-37) Alanine Aminotransferase (ALT/SGPT) 66 U/L (14-59) Alkaline Phosphatase 94 U/L (46-116) Troponin I High Sensitivity 9 ng/L (4-50) 12 ng/L (4-50) 13 ng/L (4-50) CF-Eti-S-Type Natriuretic Peptide 352 pg/mL (0-124) Total Protein 8.0 g/dL (6.4-8.2) Albumin 3.6 g/dL (3.4-5.0) Albumin/Globulin Ratio 0.8 (1.0-1.7) Lipase 101 U/L (73-393) Coronavirus (COVID-19)(PCR) Not detected (NOT DETECTD) SARS-CoV-2 Antigen (Rapid) Negative (NEGATIVE) Test 07/28/21 16:40 07/28/21 17:33 Urine Color Yellow Urine Clarity Clear Urine pH 5.0 (<5.0-8.0) Urine Specific [place] 1.020 (1.000-1.030) Urine Protein Negative mg/dL (NEG-TRACE) Urine Glucose (UA) 250 mg/dL (NEG) Urine Ketones (Stick) Negative mg/dL (NEG) Urine Blood Negative (NEG) Urine Nitrite Negative (NEG) Urine Bilirubin Negative (NEG) Urine Urobilinogen Dipstick 0.2 mg/dL (0.2 mg/dL) Urine Leukocyte Esterase Small (NEG) Urine RBC 0 /HPF (0-2) Urine WBC 5-10 /HPF (0-4) Urine Squamous Epithelial Cells Mod /LPF Urine Bacteria Many /HPF (0-FEW) Urine Hyaline Casts Occasional /HPF Glucose (Fingerstick) 269 mg/dL (70-99) Laboratory Tests Test 07/28/21 16:40 07/28/21 17:33 Urine Color Yellow Urine Clarity Clear Urine pH 5.0 (<5.0-8.0) Urine Specific [place] 1.020 (1.000-1.030) Urine Protein Negative mg/dL (NEG-TRACE) Urine Glucose (UA) 250 mg/dL (NEG) Urine Ketones (Stick) Negative mg/dL (NEG) Urine Blood Negative (NEG) Urine Nitrite Negative (NEG) Urine Bilirubin Negative (NEG) Urine Urobilinogen Dipstick 0.2 mg/dL (0.2 mg/dL) Urine Leukocyte Esterase Small (NEG) Urine RBC 0 /HPF (0-2) Urine WBC 5-10 /HPF (0-4) Urine Squamous Epithelial Cells Mod /LPF Urine Bacteria Many /HPF (0-FEW) Urine Hyaline Casts Occasional /HPF Glucose (Fingerstick) 269 mg/dL (70-99) Medications Current Medications Diazepam (Valium) 5 mg 1X ONCE PO ; Start 07/27/21 at 22:00; Stop 07/27/21 at 22:01; Status DC Ondansetron HCl (Zofran) 8 mg 1X ONCE IVP Last administered on 07/27/21at 23:39; Start 07/27/21 at 23:30; Stop 07/27/21 at 23:31; Status DC Iohexol (Omnipaque 300 Mg/ml) 60 ml 1X ONCE IV Last administered on 07/28/21at 00:40; Start 07/28/21 at 00:15; Stop 07/28/21 at 00:16; Status DC Info (CONTRAST GIVEN -- Rx MONITORING) 1 each PRN DAILY PRN MC SEE COMMENTS; Start 07/28/21 at 00:15; Stop 07/30/21 at 00:14 Sodium Chloride 1,000 ml @ 75 mls/hr [id number] IV Last administered on 07/28/21at 01:07; Start 07/28/21 at 01:00; Stop 07/29/21 at 00:59; Status DC Nicardipine HCl 50 mg/Sodium Chloride 250 ml @ 25 mls/hr CONT PRN IV PER PROTOCOL Last administered on 07/28/21at 11:28; Start 07/28/21 at 01:00 Prothrombin Complex Concent (Human) 2500 unit/ Sterile Water 100 ml @ 8.4 mls/min ONCE ONCE IV Last administered on 07/28/21at 01:40; Start 07/28/21 at 01:30; Stop 07/28/21 at 01:41; Status DC Ondansetron HCl (Zofran) 4 mg PRN Q4HRS PRN IVP NAUSEA/VOMITING; Start 07/28/21 at 01:15 Ondansetron HCl (Zofran) 4 mg 1X ONCE IVP Last administered on 07/28/21at 01:53; Start 07/28/21 at 02:00; Stop 07/28/21 at 02:01; Status DC Hydromorphone HCl (Dilaudid) 0.5 mg 1X ONCE IVP Last administered on 07/28/21at 01:54; Start 07/28/21 at 02:00; Stop 07/28/21 at 02:01; Status DC Metoclopramide HCl (Reglan Vial) 10 mg 1X ONCE IVP Last administered on 07/28/21at 01:54; Start 07/28/21 at 02:00; Stop 07/28/21 at 02:01; Status DC Hydromorphone HCl (Dilaudid) 2 mg STK-MED ONCE .ROUTE ; Start 07/28/21 at 01:50; Stop 07/28/21 at 01:50; Status DC Iohexol (Omnipaque 300 Mg/ml) 100 ml STK-MED ONCE .ROUTE ; Start 07/28/21 at 06:25; Stop 07/28/21 at 06:25; Status DC Magnesium Sulfate 50 ml @ 25 mls/hr 1X ONCE IV Last administered on 07/28/21at 17:29; Start 07/28/21 at 14:30; Stop 07/28/21 at 16:29; Status DC Diltiazem HCl (Cardizem 24hr Cd) 180 mg DAILY PO Last administered on 07/29/21at 08:31; Start 07/29/21 at 09:00 Levothyroxine Sodium (Synthroid) 150 mcg DAILY06 PO Last administered on 07/29/21at 05:21; Start 07/29/21 at 06:00 Hydrochlorothiazide (Hydrodiuril) 25 mg DAILY PO Last administered on 07/29/21at 08:30; Start 07/29/21 at 09:00 Magnesium Oxide (Magnesium Oxide) 400 mg HS PO Last administered on 07/28/21at 21:01; Start 07/28/21 at 21:00 Losartan Potassium (Cozaar) 100 mg DAILY PO Last administered on 07/29/21at 08:30; Start 07/29/21 at 09:00 Active Scripts Active Reported Systane 0.3-0.4% Eye Drops (Propylene Glycol/Peg 400) 15 Ml Drops 1 Drop EACHEYE PRN DAILY PRN Simvastatin 10 Mg Tablet 1 Tab PO QHS Magnesium 200 Mg Tablet 2 Tab PO HS 30 Days Losartan-Hctz 100-25 Mg Tab (Losartan/Hydrochlorothiazide) 1 Each Tablet 1 Tab PO DAILY Levothyroxine (Levothyroxine Sodium) 150 Mcg Capsule 150 Mcg PO DAILY06 Janumet 50-1,000 Mg Tablet (Sitagliptin Phos/Metformin Hcl) 1 Each Tablet 1 Tab PO BID Lantus Solostar (Insulin Glargine,Hum.rec.anlog) 100 Unit/1 Ml Insuln.pen 35 Unit SQ QHS Glipizide 5 Mg Tablet 1 Tab PO BID Fluticasone Propionate Nasal [place] (Fluticasone Propionate) 16 Gm [place].susp 2 [place] NS DAILY Tiazac (Diltiazem Hcl) 180 Mg Capsule.er 180 Mg PO DAILY Citalopram Hbr (Citalopram Hydrobromide) 20 Mg Tablet 1 Tab PO DAILY Eliquis (Apixaban) 5 Mg Tablet 5 Mg PO BID Vitals/I & O Vital Sign - Last 24 Hours 07/28/21 07/28/21 07/28/21 07/28/21 14:00 15:00 16:00 17:00 Temp 98.4 98.4 Pulse 78 89 81 74 Resp B/P (MAP) 118/64 142/80 137/76 120/68 Pulse Ox 96 96 98 97 O2 Delivery Nasal Cannula Nasal Cannula Nasal Cannula Nasal Cannula O2 Flow Rate 2.0 2.0 2.0 2.0 07/28/21 07/28/21 07/28/21 07/28/21 18:00 19:00 20:00 20:00 Temp 97.6 97.6 Pulse 74 77 77 Resp B/P (MAP) 129/68 134/72 143/76 Pulse Ox 96 98 96 O2 Delivery Nasal Cannula Nasal Cannula Nasal Cannula Nasal Cannula O2 Flow Rate 2.0 2.0 2.0 2.0 07/28/21 07/28/21 07/28/21 07/29/21 21:00 22:00 23:00 00:01 Temp 98.2 98.2 Pulse 88 83 81 81 Resp B/P (MAP) 146/80 162/80 149/74 144/73 Pulse Ox 96 96 96 96 O2 Delivery Nasal Cannula Nasal Cannula Nasal Cannula Nasal Cannula O2 Flow Rate 2.0 2.0 2.0 2.0 07/29/21 07/29/21 07/29/21 07/29/21 01:00 02:00 03:00 04:00 Temp 98.6 98.6 Pulse 75 93 84 90 Resp B/P (MAP) 120/73 147/85 147/88 140/80 Pulse Ox 96 95 94 94 O2 Delivery Nasal Cannula Nasal Cannula Nasal Cannula Nasal Cannula O2 Flow Rate 2.0 2.0 2.0 2.0 07/29/21 07/29/21 07/29/21 07/29/21 05:00 06:00 07:25 07:38 Temp 98.2 98.2 Pulse 83 95 86 Resp 26 16 20 B/P (MAP) 145/90 150/80 150/80 Pulse Ox 94 94 98 O2 Delivery Room Air Room Air Room Air Room Air O2 Flow Rate 2.0 2.0 07/29/21 07/29/21 07/29/21 07/29/21 08:00 08:30 08:31 09:03 Pulse 92 92 92 88 Resp 22 28 B/P (MAP) 147/94 147/94 147/94 169/97 Pulse Ox 96 95 O2 Delivery Room Air Room Air 07/29/21 07/29/21 10:06 11:04 Pulse 79 88 Resp 29 B/P (MAP) 162/98 134/82 Pulse Ox 95 96 O2 Delivery Room Air Room Air Intake and Output 07/28/21 07/28/21 07/29/21 15:00 23:00 07:00 Intake Total 600 ml Output Total 0 ml 900 ml Balance 0 ml -300 ml Justifications for Admission Other Justification NAIDA HUGO MD Jul 29, 2021 13:37
[2021-07-29] MEDS ORDERED: ACETAMINOPHEN 325 MG TABLET. PO PRN (13:45)
--- NOTE | 2021-07-29 15:27 | NUR ---
SS following up with discharge planning. SS reviewed pt chart and discussed with pt RN. Pt is currently on room air. COVID19 negative. Cardiology and Dr. Conde following. Pt to have follow up head CT tomorrow. SS will continue to follow for discharge planning.
[2021-07-29] MEDS: MAGNESIUM OXIDE 400 MG TABLET PO SCH (21:18)
[2021-07-30 03:00] VITALS: BP 150/84
[2021-07-30] MEDS: LEVOTHYROXINE 150 MCG TABLET PO SCH (05:23)
[2021-07-30 07:00] VITALS: BP 178/84
[2021-07-30] MEDS: hydroCHLOROthiazide 25 MG TABLET PO SCH (07:49)
[2021-07-30] MEDS: LOSARTAN POTASSIUM 50 MG TABLET. PO SCH (07:49)
--- NOTE | 2021-07-30 08:53 | PDOC ---
[employer] PROGRESS NOTE Date of Service DOS: DATE: 07/30/21 TIME: 08:52 Chief Complaint Chief Complaint Fall with subdural hematoma and subarachnoid hemorrhage Chronic anticoagulation, on Eliquis, hypertension, depression, anxiety, allergic rhinitis, constipation, diabetes, hypothyroidism. History of Present Illness History of Present Illness 07/30/2021 Patient seen and examined Discussed with RN Chart reviewed 07/29/2021 Patient seen exam She is up in the chair smiling She wants to go home Discussed with RN Chart reviewed Vitals/I&O Vitals/I&O: Vital Signs Date Time Temp Pulse Resp B/P (MAP) Pulse Ox O2 Delivery O2 Flow Rate FiO2 07/30/21 07:56 Room Air 07/30/21 07:49 81 150/84 07/30/21 07:00 98.1 26 97 98.1 I & O 07/29/21 07/29/21 07/30/21 15:00 23:00 07:00 Intake Total 700 ml Output Total 1 ml 2 ml Balance -1 ml 698 ml Physical Exam General: Alert, Oriented X3, Cooperative, No acute distress Heart: Other (IRRR; tele AFIB) Abdomen: Soft, No tenderness Extremities: No edema Skin: No breakdown, No significant lesion Assessment and Plan Assessmemt and Plan Problems Medical Problems: (1) Cirrhosis Status: Acute (2) Elevated liver enzymes Status: Acute (3) SAH (subarachnoid hemorrhage) Status: Acute (4) SDH (subdural hematoma) Status: Acute Fall with subdural hematoma and subarachnoid hemorrhage Chronic anticoagulation, on Eliquis, hypertension, depression, anxiety, allergic rhinitis, constipation, diabetes, hypothyroidism. Plan PT OT We are considering discharge soon if her CAT scan does not show any worsening of the bleed Encourage p.o. intake Cardiac monitoring Home meds except for Eliquis DVT prophylaxis Full code Discharge when okay with neurosurgery Comment Review of Relevant I have reviewed the following items manohar (where applicable) has been applied. Medications: Current Medications Medications (Trade) Dose Ordered Sig/Sanjuana Route PRN Reason Start Time Stop Time Status Last Admin Dose Admin Diltiazem HCl (Cardizem 24hr Cd) 180 mg DAILY PO 07/29/21 09:00 07/30/21 07:49 Hydrochlorothiazide (Hydrodiuril) 25 mg DAILY PO 07/29/21 09:00 07/30/21 07:49 Losartan Potassium (Cozaar) 100 mg DAILY PO 07/29/21 09:00 07/30/21 07:49 Acetaminophen (Tylenol) 325 mg PRN Q6HRS PRN PO MILD PAIN / TEMP > 100.3'F 07/29/21 13:45 07/29/21 21:18 Justifications for Admission Other Justification DARION TIMMONS III DO Jul 30, 2021 08:53
--- NOTE | 2021-07-30 08:55 | SNU/HH DC ---
DISCHARGE WITH HOME HEALTH DISCHARGE INFORMATION: Final Diagnosis: Problems Medical Problems: (1) Cirrhosis Status: Acute (2) Elevated liver enzymes Status: Acute (3) SAH (subarachnoid hemorrhage) Status: Acute (4) SDH (subdural hematoma) Status: Acute Condition on Discharge: Stable CODE STATUS: Code Status: Full HOME HEALTH: Face to Face: I certify this patient is under my care and that I, or a nurse practitioner or physician's desk assistant working with me, had a face to face encounter that meets the physician face to face encounter requirements with this patient on []. Medical Complications: Other (Recent SHERIFF hemorrhage) Senior Living For: Assess Cardiopulm Status RN For Eval/Treatment: Yes Physical Therapy For: Evalulation/Treatment Occupational Therapy For: Evaluation/Treatment Home Health Aide For: Self-care HEAD OF HUMAN RESOURCES For: Community Resources Pt Meets Homebound Status: Unsteady balance w/ amb, POST DISCHARGE ORDERS: DIET AFTER DISCHARGE: Cardiac CERTIFICATION STATEMENT: Certification Statement: Certification Statement: Based on the above finding, I certify that this patient is confined to the home and needs intermittent intermediate care, physical therapy and/or speech therapy, or continues to need occupational therapy.~ This patient is under my care, and I have initiated the establishment of the plan of care.~ This patient will be followed by myself or a community physician who will periodically review the plan of care. Home Meds Reported Medications Propylene Glycol/Peg 400 ([place] 0.3-0.4% EYE DROPS) 15 Ml Drops, 1 DROP EACHEYE PRN DAILY PRN for ALLERGIES, #30 ML 5 Refills 07/28/21 Simvastatin (SIMVASTATIN) 10 Mg Tablet, 1 TAB PO QHS for HLD, #30 TAB 5 Refills 07/28/21 Magnesium (MAGNESIUM) 200 Mg Tablet, 2 TAB PO HS for supplement for 30 Days, #60 TAB 0 Refills 07/28/21 Losartan/Hydrochlorothiazide (LOSARTAN-HCTZ 100-25 MG TAB) 1 Each Tablet, 1 TAB PO DAILY for HTN, #30 TAB 5 Refills 07/28/21 Levothyroxine Sodium (Levothyroxine) 150 Mcg Capsule, 150 MCG PO DAILY06 for hypothyroid, CAP 07/28/21 Sitagliptin Phos/Metformin Hcl (JANUMET 50-1,000 MG TABLET) 1 Each Tablet, 1 TAB PO BID for DM, #60 TAB 5 Refills 07/28/21 Insulin Glargine,Hum.rec.anlog (LANTUS SOLOSTAR) 100 Unit/1 Ml Insuln.pen, 35 UNIT SQ QHS for DM, #15 ML 3 Refills 07/28/21 Glipizide (GLIPIZIDE) 5 Mg Tablet, 1 TAB PO BID for DM, #60 TAB 3 Refills 07/28/21 Fluticasone Propionate (FLUTICASONE PROPIONATE NASAL SPRAY) 16 Gm [place].susp, 2 SPRAY NS DAILY for allergies, #1 INHALER 11 Refills 07/28/21 Diltiazem Hcl (TIAZAC) 180 Mg Capsule.er, 180 MG PO DAILY for afib, CAP.SR 07/28/21 Citalopram Hydrobromide (CITALOPRAM HBR) 20 Mg Tablet, 1 TAB PO DAILY for depression, #30 TAB 5 Refills 07/28/21 Discontinued Reported Medications Apixaban (ELIQUIS) 5 Mg Tablet, 5 MG PO BID for afib, TAB 07/28/21 DARION TIMMONS III DO Jul 30, 2021 08:54
--- NOTE | 2021-07-30 10:11 | RAD ---
EXAM: CT head without contrast INDICATION: Subdural hematoma COMPARISON: CT head 07/28/2021 TECHNIQUE: Axial CT imaging through the head without intravenous contrast. Sagittal and coronal refor mats were obtained. One or more of the following individualized dose reduction techniques were utilized for this examinat ion: 1. Automated exposure control 2. Adjustment of the mA and/or kV according to patient size 3. Use of iterative reconstruction technique. FINDINGS: Right cerebral convexity subdural maternal is unchanged measuring up to 1.0 cm. Additional subdural h ematoma along the right cerebellar tentorium is also unchanged measuring 0.5 cm in thickness. There i s a small amount of blood along the posterior falx, unchanged. Small scattered right subarachnoid hem orrhage is unchanged. A more hypoattenuating left cerebral convexity subdural hematoma measuring 0.6 cm is unchanged. No new intracranial hemorrhage. Mild sulcal narrowing in the right cerebral hemisphe re and 2 mm leftward midline shift at the level of the septum pellucidum is stable. Ventricles are no rmal. Globes and orbits are intact. Paranasal sinuses and mastoid air cells are clear. The skull and scalp are intact. IMPRESSION: 1. Unchanged bilateral subdural hematomas and small right subarachnoid hemorrhage. 2. Unchanged 2 mm leftward midline shift. Electronically signed by: Rachel Bowling MD (07/30/2021 10:08 AM) [id number]
[2021-07-30 11:06] VITALS: BP 140/79
--- NOTE | 2021-07-30 11:06 | PDOC ---
LEYDI ARGUETA APRN 07/30/21 1106: CARDIO Progress Notes Date and Time Date of Service 07/30/21 Time of Evaluation 1100 Subjective Subjective: No Chest Pain, No shortness of breath, No Palpitations, Other (c/o headache ) Vitals Vitals Vital Signs Date Time Temp Pulse Resp B/P (MAP) Pulse Ox O2 Delivery O2 Flow Rate FiO2 07/30/21 07:56 Room Air 07/30/21 07:49 81 150/84 07/30/21 07:00 98.1 26 97 98.1 Weight Weight [ ] Input and Output Intake and Output Intake and Output 07/30/21 07:00 Intake Total 700 ml Output Total 3 ml Balance 697 ml Intake Oral 700 ml Output Urine Total 3 ml # Voids 2 Microbiology Micro Microbiology 07/28/21 Urine Culture - Preliminary, Resulted Escherichia Coli Physical Exam HEENT: Neck Supple W Full Motion Chest: Symmetric LUNGS: Clear to Auscultation Heart: irregularly irregular (AFIB, rate controlled ) Abdomen: Soft N/T Extremities: No Edema Neurology: alert, oriented, follow commands Assessment Assessment 1. Mechanical fall with bilateral subdural hematoma and right subarachnoid hemorrhage 2. Permanent AFIB; was on OAC with Eliquis. On Cardizem for rate control. Follows with [facility], Dr. Alexandre. Echo 07/26 with preserved LV systolic function. LHC 08/23 with normal coronaries 3. Hypertensive urgency; off Cardene. better controlled 4. Hyperlipidemia; on statin 5. Diabetes, II 6. H/o CVA 7. Hypothyroidism; on replacement Recommendations No ASA or OAC with SDH Follow neurosurgery recs Continue Cardizem for rate control Consider for outpatient LAAO. Will defer to primary commercial loan specialist, Dr. Alexandre Supportive care Justicifation of Admission Dx: Justifications for Admission: Justification of Admission Dx: Yes ARNIE LUBIN MD 07/31/21 1031: CARDIO Progress Notes Plan Plan Late entry for 07/30/2021 Patient seen and examined. Agree with above nurse practitioner note. Discussed with patient's primary commercial loan specialist Dr. Alexandre and updated her clinical status. Discussed with neurosurgery service and she will refrain from anticoagulation for 2 months then plan for outpatient watchman device placement. LEYDI ARGUETA APRN Jul 30, 2021 11:06 ARNIE LUBIN MD Jul 31, 2021 10:31
--- NOTE | 2021-07-30 14:52 | NUR ---
Discharge Note: [facility] Discharge instructions and discharge home medications reviewed with Patient and a copy given. All questions have been answered and understanding verbalized. The following instructions and handouts were given: Dr. Conde's office will set up a follow up CT for next week. Follow up with Dr. Alexandre within 2 months. Discontinue eliquis and no driving untill notified. Education pertaining to SDH was discussed and given to patient. Discontinued lines and drains: Right/Left 20g AC and Left 20g hand was removed with tip intact. Patient discharged to home with self care. drove patient from the [facility] facility.
--- NOTE | 2021-07-30 15:03 | PDOC ---
PROGRESS NOTES Date of Service DATE: 07/30/21 TIME: 15:02 Subjective Subjective patient seen at 1400 sitting up in chair mild headache Objective Objective Vital Signs Date Time Temp Pulse Resp B/P (MAP) Pulse Ox O2 Delivery O2 Flow Rate FiO2 07/30/21 11:06 98.3 77 12 140/79 96 Room Air 98.3 07/29/21 06:00 2.0 Intake and Output 07/30/21 07:00 Intake Total 700 ml Output Total 3 ml Balance 697 ml Intake Oral 700 ml Output Urine Total 3 ml # Voids 2 Physical Exam General: Alert, Oriented X3, Cooperative, No acute distress MUSCULOSKELETAL: Other (TURK) Neuro: Normal speech Assessment Assessment Problems Medical Problems: (1) Cirrhosis Status: Acute (2) Elevated liver enzymes Status: Acute (3) SAH (subarachnoid hemorrhage) Status: Acute (4) SDH (subdural hematoma) Status: Acute Plan Plan of Care Follow up scan reviewed-Unchanged bilateral subdural hematomas and small right subarachnoid hemorrhage, Unchanged 2 mm leftward midline shift. ok to dc home hold Eliquis, follow up with cardiology no driving will arrange a follow up CT head in a week Comment Review of Relevant I have reviewed the following items manohar (where applicable) has been applied. Labs Laboratory Tests Test 07/28/21 16:40 07/28/21 17:33 Urine Color Yellow Urine Clarity Clear Urine pH 5.0 (<5.0-8.0) Urine Specific [place] 1.020 (1.000-1.030) Urine Protein Negative mg/dL (NEG-TRACE) Urine Glucose (UA) 250 mg/dL (NEG) Urine Ketones (Stick) Negative mg/dL (NEG) Urine Blood Negative (NEG) Urine Nitrite Negative (NEG) Urine Bilirubin Negative (NEG) Urine Urobilinogen Dipstick 0.2 mg/dL (0.2 mg/dL) Urine Leukocyte Esterase Small (NEG) Urine RBC 0 /HPF (0-2) Urine WBC 5-10 /HPF (0-4) Urine Squamous Epithelial Cells Mod /LPF Urine Bacteria Many /HPF (0-FEW) Urine Hyaline Casts Occasional /HPF Glucose (Fingerstick) 269 mg/dL (70-99) Microbiology 07/28/21 Urine Culture - Preliminary, Resulted Escherichia Coli Medications Current Medications Diazepam (Valium) 5 mg 1X ONCE PO ; Start 07/27/21 at 22:00; Stop 07/27/21 at 22:01; Status DC Ondansetron HCl (Zofran) 8 mg 1X ONCE IVP Last administered on 07/27/21at 23:39; Start 07/27/21 at 23:30; Stop 07/27/21 at 23:31; Status DC Iohexol (Omnipaque 300 Mg/ml) 60 ml 1X ONCE IV Last administered on 07/28/21at 00:40; Start 07/28/21 at 00:15; Stop 07/28/21 at 00:16; Status DC Info (CONTRAST GIVEN -- Rx MONITORING) 1 each PRN DAILY PRN MC SEE COMMENTS; Start 07/28/21 at 00:15; Stop 07/30/21 at 00:14; Status DC Sodium Chloride 1,000 ml @ 75 mls/hr [id number] IV Last administered on 07/28/21at 01:07; Start 07/28/21 at 01:00; Stop 07/29/21 at 00:59; Status DC Nicardipine HCl 50 mg/Sodium Chloride 250 ml @ 25 mls/hr CONT PRN IV PER PROTOCOL Last administered on 07/28/21at 11:28; Start 07/28/21 at 01:00; Stop 07/30/21 at 14:57; Status DC Prothrombin Complex Concent (Human) 2500 unit/ Sterile Water 100 ml @ 8.4 mls/min ONCE ONCE IV Last administered on 07/28/21at 01:40; Start 07/28/21 at 01:30; Stop 07/28/21 at 01:41; Status DC Ondansetron HCl (Zofran) 4 mg PRN Q4HRS PRN IVP NAUSEA/VOMITING; Start 07/28/21 at 01:15; Stop 07/30/21 at 14:57; Status DC Ondansetron HCl (Zofran) 4 mg 1X ONCE IVP Last administered on 07/28/21at 01:53; Start 07/28/21 at 02:00; Stop 07/28/21 at 02:01; Status DC Hydromorphone HCl (Dilaudid) 0.5 mg 1X ONCE IVP Last administered on 07/28/21at 01:54; Start 07/28/21 at 02:00; Stop 07/28/21 at 02:01; Status DC Metoclopramide HCl (Reglan Vial) 10 mg 1X ONCE IVP Last administered on 07/28/21at 01:54; Start 07/28/21 at 02:00; Stop 07/28/21 at 02:01; Status DC Hydromorphone HCl (Dilaudid) 2 mg STK-MED ONCE .ROUTE ; Start 07/28/21 at 01:50; Stop 07/28/21 at 01:50; Status DC Iohexol (Omnipaque 300 Mg/ml) 100 ml STK-MED ONCE .ROUTE ; Start 07/28/21 at 06:25; Stop 07/28/21 at 06:25; Status DC Magnesium Sulfate 50 ml @ 25 mls/hr 1X ONCE IV Last administered on 07/28/21at 17:29; Start 07/28/21 at 14:30; Stop 07/28/21 at 16:29; Status DC Diltiazem HCl (Cardizem 24hr Cd) 180 mg DAILY PO Last administered on 07/30/21at 07:49; Start 07/29/21 at 09:00; Stop 07/30/21 at 14:57; Status DC Levothyroxine Sodium (Synthroid) 150 mcg DAILY06 PO Last administered on 07/30/21at 05:23; Start 07/29/21 at 06:00; Stop 07/30/21 at 14:57; Status DC Hydrochlorothiazide (Hydrodiuril) 25 mg DAILY PO Last administered on 07/30/21at 07:49; Start 07/29/21 at 09:00; Stop 07/30/21 at 14:57; Status DC Magnesium Oxide (Magnesium Oxide) 400 mg HS PO Last administered on 07/29/21at 21:18; Start 07/28/21 at 21:00; Stop 07/30/21 at 14:57; Status DC Losartan Potassium (Cozaar) 100 mg DAILY PO Last administered on 07/30/21at 07:49; Start 07/29/21 at 09:00; Stop 07/30/21 at 14:57; Status DC Acetaminophen (Tylenol) 325 mg PRN Q6HRS PRN PO MILD PAIN / TEMP > 100.3'F Last administered on 07/29/21at 21:18; Start 07/29/21 at 13:45; Stop 07/30/21 at 14:57; Status DC Active Scripts Active Reported Systane 0.3-0.4% Eye Drops (Propylene Glycol/Peg 400) 15 Ml Drops 1 Drop EACHEYE PRN DAILY PRN Simvastatin 10 Mg Tablet 1 Tab PO QHS Magnesium 200 Mg Tablet 2 Tab PO HS 30 Days Losartan-Hctz 100-25 Mg Tab (Losartan/Hydrochlorothiazide) 1 Each Tablet 1 Tab PO DAILY Levothyroxine (Levothyroxine Sodium) 150 Mcg Capsule 150 Mcg PO DAILY06 Janumet 50-1,000 Mg Tablet (Sitagliptin Phos/Metformin Hcl) 1 Each Tablet 1 Tab PO BID Lantus Solostar (Insulin Glargine,Hum.rec.anlog) 100 Unit/1 Ml Insuln.pen 35 Unit SQ QHS Glipizide 5 Mg Tablet 1 Tab PO BID Fluticasone Propionate Nasal Solon (Fluticasone Propionate) 16 Gm Solon.susp 2 Solon NS DAILY Tiazac (Diltiazem Hcl) 180 Mg Capsule.er 180 Mg PO DAILY Citalopram Hbr (Citalopram Hydrobromide) 20 Mg Tablet 1 Tab PO DAILY Vitals/I & O Vital Sign - Last 24 Hours 07/29/21 07/29/21 07/29/21 07/30/21 19:00 20:00 23:00 03:00 Temp 98.5 98.2 98.5 98.5 98.2 98.5 Pulse 90 82 81 Resp B/P (MAP) 156/72 154/68 150/84 Pulse Ox 97 96 96 O2 Delivery Room Air Room Air Room Air Room Air 07/30/21 07/30/21 07/30/21 07/30/21 07:00 07:49 07:49 07:56 Temp 98.1 98.1 Pulse 94 81 81 Resp 26 B/P (MAP) 178/84 150/84 150/84 Pulse Ox 97 O2 Delivery Room Air Room Air 07/30/21 11:06 Temp 98.3 98.3 Pulse 77 Resp 12 B/P (MAP) 140/79 Pulse Ox 96 O2 Delivery Room Air Intake and Output 07/29/21 07/29/21 07/30/21 15:00 23:00 07:00 Intake Total 700 ml Output Total 1 ml 2 ml Balance -1 ml 698 ml Justifications for Admission Other Justification TANA ELIZONDO APRN Jul 30, 2021 15:03
== END 2021-07-30 14:57 | disposition home or self-care (01) | DRG 86 ==
LOC: ER 21:31 → 1 WEST ICU 07-28 00:56
PROVIDERS: ADMIT Internal Medicine; ATTEND Internal Medicine
DX: S06.5X0A Traumatic subdural hemorrhage without loss of consciousness, initial encounter (principal); I48.21 Permanent atrial fibrillation; E03.9 Hypothyroidism, unspecified; E11.9 Type 2 diabetes mellitus without complications; E78.5 Hyperlipidemia, unspecified; E83.42 Hypomagnesemia; F32.A Depression, unspecified; F41.9 Anxiety disorder, unspecified; I10 Essential (primary) hypertension; I16.0 Hypertensive urgency; J30.9 Allergic rhinitis, unspecified; K57.90 Diverticulosis of intestine, part unspecified, without perforation or abscess without bleeding; K59.00 Constipation, unspecified; S06.6X0A Traumatic subarachnoid hemorrhage without loss of consciousness, initial encounter; K74.60 Unspecified cirrhosis of liver; K80.20 Calculus of gallbladder without cholecystitis without obstruction; Q07.00 Arnold-Chiari syndrome without spina bifida or hydrocephalus; W07.XXXA Fall from chair, initial encounter; Z79.01 Long term (current) use of anticoagulants; Z83.3 Family history of diabetes mellitus; Z86.73 Personal history of transient ischemic attack (TIA), and cerebral infarction without residual deficits; Z87.11 Personal history of peptic ulcer disease; K21.9 Gastro-esophageal reflux disease without esophagitis; Z88.0 Allergy status to penicillin; Z88.2 Allergy status to sulfonamides; Z20.822 Contact with and (suspected) exposure to COVID-19; W18.39XA Other fall on same level, initial encounter; Y93.89 Activity, other specified; Y92.89 Other specified places as the place of occurrence of the external cause; Y99.8 Other external cause status
CPT/HCPCS: 36415; 70450; 71045; 72125; 73521; 74177; 80053; 81001; 82962; 83690; 83735; 83880; 84484; 85025; 85379; 85384; 85610; 85730; 86850; 86900; 86901; 87077; 87086; 87186; 87426; 93005; 96374; 96375; 96376; J1170; J2405; J2765; J3475; J3490; J7030; J7050; J7194; Q9967; U0003; 99291-25; G0378

== ENCOUNTER 2021-08-18 01:35 | Emergency (ER) | payer MEDICARE, OTHER ==
[~2021-08-18] VITALS: Ht 137.2 cm; Wt 54.5 kg
[~2021-08-18 01:35] MED LIST: APIX5TAB PO; CITA20TA6 PO; DILT180C86 PO; FLUT16SP NS; GLIP5TAB10 PO; INSU100I13 SQ; LEVO150C3 PO; LOSA1TAB22 PO; MAGN200T PO; PROP15DR EACHEYE; SIMV10TA15 PO; SITA1TAB11 PO
--- NOTE | 2021-08-18 01:42 | ED.ADGEN ---
Past Medical History Additional Past Medical Histor: subarachnoid hemorrhage, SUBDERAL HEMATOMA Past Surgical History: Other Additional Past Surgical Histo: BACK Smoking Status: Never Smoker Alcohol Use: None General Adult EDM: Chief Complaint: FATIGUE HPI: HPI: Patient is a 71 year old female brought in from home via EMS for weakness. Per EMS she had a recent subdural hematoma history of facility acquired surgery. They state the family says she has been getting more weak over the past couple of days. They have had trouble getting up to go the restroom. Patient states that she has had poor p.o. intake since discharge. States she has been having dry heaves but no vomiting. Had a normal bowel movement yesterday. Denies any fever or chills. Denies any headache or vision changes. Patient was given Eliquis but says she has not restarted any blood thinners On exam patient is holding her left wrist flaccid and has no left hand insole channeler. When asked to extend her left wrist she is unable to. Is unable to say whether that is normal. She also has left lower facial droop. On 's arrival he is able to add that yesterday he noticed slurred speech, some confusion, and she was complaining of hot and cold flashes. He states this morning that she got it before him but he got up at 6 she was initially able to get herself up, started around and that she is not able to lift herself out of a chair. He states she normally is able to ambulate without a walker Review of Systems: Review of Systems: All other systems within normal limits except for as noted in the HPI Current Medications: Current Medications Medications (Trade) Dose Ordered Sig/Sanjuana Start Time Stop Time Status Last Admin Dose Admin Info (CONTRAST GIVEN -- Rx MONITORING) 1 each PRN DAILY PRN 08/18/21 03:30 08/20/21 03:29 Iohexol (Omnipaque 300 Mg/ml) 75 ml 1X ONCE 08/18/21 03:30 08/18/21 03:31 DC Ringer's Solution 1,000 ml @ 100 mls/hr Q10H 08/18/21 02:00 08/18/21 02:00 100 MLS/HR Allergies: Allergies: Allergies Coded Allergies Type Severity Reaction Last Updated Verified Penicillins Allergy Intermediate HIVES 07/27/21 Yes flecainide Allergy Intermediate 08/05/21 Yes gabapentin Allergy Intermediate 08/05/21 Yes nitrofurantoin Allergy Intermediate SWELLING 07/27/21 Yes ranitidine Adverse Reaction Intermediate COUGH 08/05/21 Yes Sulfa (Sulfonamide Antibiotics) Adverse Reaction Mild NAUSEA AND VOMITING 08/05/21 Yes Physical Exam: PE: Constitutional: Well developed, well nourished, no acute distress, non-toxic appearance. [] HENT: Normocephalic, atraumatic, bilateral external ears normal, nose normal. [] Eyes: PERRLA, conjunctiva normal, no discharge. [] Neck: No rigidity, supple, no stridor. [] Cardiovascular: Regular rate and rhythm, brisk cap refill [] Lungs & Thorax: Non labored symmetric respirations, no tachypnea or respiratory distress [] Abdomen: Soft, nondistended. Skin: Warm, dry, no erythema, no rash. Multiple bruises [] Back: Unremarkable Extremities: No deformities, range of motion grossly intact, no lower extremity edema [] Neurologic: Alert and oriented X 3 (was some intermittent confusion), lower left-sided facial droop. Left upper extremity: Able to raise arm and bend elbow, unable to extend wrist and no insole channeler strength. Bilateral lower extremity weakness, but able to move against gravity Psychologic: Affect normal, judgement normal, mood normal. [] Current Patient Data: Labs: Laboratory Tests Test 08/18/21 01:53 08/18/21 01:55 Glucose (Fingerstick) 239 mg/dL (70-99) H White Blood Count 11.5 x10^3/uL (4.0-11.0) H Red Blood Count 3.99 x10^6/uL (3.50-5.40) Hemoglobin 12.2 g/dL (12.0-15.5) Hematocrit 37.0 % (36.0-47.0) Mean Corpuscular Volume 93 fL (79-100) Mean Corpuscular Hemoglobin 31 pg (25-35) Mean Corpuscular Hemoglobin Concent 33 g/dL (31-37) Red Cell Distribution Width 19.9 % (11.5-14.5) H Platelet Count 234 x10^3/uL (140-400) Neutrophils (%) (Auto) 55 % (31-73) Lymphocytes (%) (Auto) 37 % (24-48) Monocytes (%) (Auto) 7 % (0-9) Eosinophils (%) (Auto) 0 % (0-3) Basophils (%) (Auto) 1 % (0-3) Neutrophils # (Auto) 6.3 x10^3/uL (1.8-7.7) Lymphocytes # (Auto) 4.2 x10^3/uL (1.0-4.8) Monocytes # (Auto) 0.8 x10^3/uL (0.0-1.1) Eosinophils # (Auto) 0.0 x10^3/uL (0.0-0.7) Basophils # (Auto) 0.1 x10^3/uL (0.0-0.2) Prothrombin Time 15.1 SEC (11.7-14.0) H Prothrombin Time INR 1.2 (0.8-1.1) H Activated Partial Thromboplast Time 39 SEC (24-38) H Sodium Level 135 mmol/L (136-145) L Potassium Level 4.4 mmol/L (3.5-5.1) Chloride Level 99 mmol/L (98-107) Carbon Dioxide Level 27 mmol/L (21-32) Anion Gap 9 (6-14) Blood Urea Nitrogen 10 mg/dL (7-20) Creatinine 0.9 mg/dL (0.6-1.0) Estimated GFR (Cockcroft-Gault) 61.7 BUN/Creatinine Ratio 11 (6-20) Glucose Level 200 mg/dL (70-99) H Calcium Level 9.7 mg/dL (8.5-10.1) Total Bilirubin 0.7 mg/dL (0.2-1.0) Aspartate Amino Transferase (AST) 27 U/L (15-37) Alanine Aminotransferase (ALT) 38 U/L (14-59) Alkaline Phosphatase 134 U/L (46-116) H Troponin I High Sensitivity 17 ng/L (4-50) Total Protein 7.0 g/dL (6.4-8.2) Albumin 3.6 g/dL (3.4-5.0) Albumin/Globulin Ratio 1.1 (1.0-1.7) Laboratory Tests 08/18/21 01:55 Laboratory Tests 08/18/21 01:55 Vital Signs: Vital Signs Date Time Temp Pulse Resp B/P (MAP) Pulse Ox O2 Delivery O2 Flow Rate FiO2 08/18/21 01:40 98.2 99 17 128/77 (94) 100 Room Air 98.2 EKG: EKG: Irregular regular rhythm, heart rate 90 bpm, slight left axis deviation, no STEMI. No significant change from ECG dated 07-27-21 [] Heart Score: C/O Chest Pain: No Risk Factors: Risk Factors: DM, Current or recent (<one month) smoker, HTN, HLP, family history of CAD, obesity. Risk Scores: Score 0 - 3: 2.5% MACE over next 6 weeks - Discharge Home Score 4 - 6: 20.3% MACE over next 6 weeks - Admit for Clinical Observation Score 7 - 10: 72.7% MACE over next 6 weeks - Early Invasive Strategies Radiology/Procedures: Radiology/Procedures: [facility] [address] [place] [address] IMAGING REPORT Signed PATIENT: CASSIA HAMILTON ACCOUNT: [id number] : 1950 LOCATION: ER AGE: 71 SEX: F EXAM STATUS: REG ER ORD. PHYSICIAN: MAY ALMEIDA MD REASON: left face and LUE weakness, OMNI 300 75 ML IV PROCEDURE: CT ANGIOGRAPHY HEAD AND NECK CT angiography head and neck with contrast Stenosis calculations for CT, MR, and conventional angiography are based upon measurements of the distal ICA diameter in accordance with the NASCET methodology. Stenosis calculations for carotid ultrasound studies are derived from validated velocity criteria which are known to correlate with the NASCET methodology. PQRS statement: CT scans at this facility use dose reduction including either automated exposure control, iterative reconstructions, and /or weight based radiation dosing via mA and kV modification when appropriate to reduce radiation dose to as low as reasonably achievable. HISTORY: Left facial weakness. Left upper extremity weakness. Contrast: 75 mL of 100 intravenous contrast. 3-D MIP reconstructions of the arteries were acquired. COMPARISON: CT head August 18, 2013 prior studies. CTA neck findings: Calcified plaque aortic arch. No ostial stenosis of the vessels from the aortic arch. Left vertebral artery origin is from the aorta. Codominant vertebral arteries demonstrate no plaque, thrombus, dissection, stenosis or occlusion. Both carotid arteries demonstrate retropharyngeal segments. There is mild calcified plaque at the bifurcation of both carotid arteries without significant stenosis with narrowing of no more than 10%. No dissection, thrombus, significant stenosis or occlusion of the carotid arteries in the neck. Small subcentimeter calcified nodule lower thyroid. CTA head findings: Calcified cavernous carotid arteries. Patent right posterior communicating artery. Patent anterior communicating artery. No thrombus, occlusion or aneurysm. The right middle cerebral artery at its bifurcation and the peripheral arterial branches through the M2 and smaller order branches are diffusely much smaller in caliber with less contrast distention relative to the contralateral MCA, there is no plaquing evident or filling defect, given its unilateral nature narrowing and given the right-sided hematoma this raises the possibility of right-sided vasospasm. Secondarily some compression of the right hemisphere from the subdural hematoma contributing to compression of the caliber of the right middle cerebral arterial branches would also be a possibility but considered less likely. IMPRESSION: 1. No large vessel occlusion. 2. The right middle cerebral artery at its bifurcation and peripherally involving the smaller peripheral arterial branches is asymmetrically smaller in caliber with less contrast distention diffusely. This raises the possibility of vasospasm associated with the right-sided subdural hematoma. Given the unilateral and diffuse nature of involvement this would be atypical for atherosclerotic-related stenotic disease. See above. FOR INTERNAL CODING PURPOSES Critical result: Findings discussed with MAY ALMEIDA MD at 08/18/2021 4:08 AM. RESULT CODE: (C) Electronically signed by: Louann Whitaker MD (08/18/2021 4:19 AM) [facility] [place] and SIGNED BY: LOUANN WHITAKER MD DATE: 08/18/21 [id number] [][facility] [address] [place], [place] [id number] IMAGING REPORT Signed PATIENT: CASSIA HAMILTON ACCOUNT: [id number] : 1950 LOCATION: ER AGE: 71 SEX: F EXAM STATUS: REG ER ORD. PHYSICIAN: MAY ALMEIDA MD REASON: left face and LUE weakness, OMNI 300 75 ML IV PROCEDURE: CT ANGIOGRAPHY HEAD AND NECK CT angiography head and neck with contrast Stenosis calculations for CT, MR, and conventional angiography are based upon measurements of the distal ICA diameter in accordance with the NASCET methodology. Stenosis calculations for carotid ultrasound studies are derived from validated velocity criteria which are known to correlate with the NASCET methodology. PQRS statement: CT scans at this facility use dose reduction including either automated exposure control, iterative reconstructions, and /or weight based radiation dosing via mA and kV modification when appropriate to reduce radiation dose to as low as reasonably achievable. HISTORY: Left facial weakness. Left upper extremity weakness. Contrast: 75 mL of 100 intravenous contrast. 3-D MIP reconstructions of the arteries were acquired. COMPARISON: CT head August 18, 2013 prior studies. CTA neck findings: Calcified plaque aortic arch. No ostial stenosis of the vessels from the aortic arch. Left vertebral artery origin is from the aorta. Codominant vertebral arteries demonstrate no plaque, thrombus, dissection, stenosis or occlusion. Both carotid arteries demonstrate retropharyngeal segments. There is mild calcified plaque at the bifurcation of both carotid arteries without significant stenosis with narrowing of no more than 10%. No dissection, thrombus, significant stenosis or occlusion of the carotid arteries in the neck. Small subcentimeter calcified nodule lower thyroid. CTA head findings: Calcified cavernous carotid arteries. Patent right posterior communicating artery. Patent anterior communicating artery. No thrombus, occlusion or aneurysm. The right middle cerebral artery at its bifurcation and the peripheral arterial branches through the M2 and smaller order branches are diffusely much smaller in caliber with less contrast distention relative to the contralateral MCA, there is no plaquing evident or filling defect, given its unilateral nature narrowing and given the right-sided hematoma this raises the possibility of right-sided vasospasm. Secondarily some compression of the right hemisphere from the subdural hematoma contributing to compression of the caliber of the right middle cerebral arterial branches would also be a possibility but considered less likely. IMPRESSION: 1. No large vessel occlusion. 2. The right middle cerebral artery at its bifurcation and peripherally involving the smaller peripheral arterial branches is asymmetrically smaller in caliber with less contrast distention diffusely. This raises the possibility of vasospasm associated with the right-sided subdural hematoma. Given the unilateral and diffuse nature of involvement this would be atypical for atherosclerotic-related stenotic disease. See above. FOR INTERNAL CODING PURPOSES Critical result: Findings discussed with MAY ALMEIDA MD at 08/18/2021 4:08 AM. RESULT CODE: (C) Electronically signed by: Louann Whitaker MD (08/18/2021 4:19 AM) [facility] [place] and SIGNED BY: LOUANN WHITAKER MD DATE: 08/18/21 [id number] [facility] [address] [place] [address] IMAGING REPORT Signed PATIENT: CASSIA HAMILTON ACCOUNT: [id number] : 1950 LOCATION: ER AGE: 71 SEX: F EXAM STATUS: REG ER ORD. PHYSICIAN: MAY ALMEIDA MD REASON: left upper ext and face weakness, ams, weakness, recent SDH PROCEDURE: CT CODE STROKE HEAD WO CT head without contrast PQRS statement: CT scans at this facility use dose reduction including either automated exposure control, iterative reconstructions, and /or weight based radiation dosing via mA and kV modification when appropriate to reduce radiation dose to as low as reasonably achievable. HISTORY: Code stroke. Left upper extremity and facial weakness. Altered mental status. Recent subdural hematoma. COMPARISON: CT head August 08, 2021. FINDINGS: Suboccipital craniectomy. Right frontoparietal mathew hole. The subdural drainage catheter on the prior exam has been removed. There is right hemispheric subdural hematoma with decreased density since the prior exam however there appears to be mildly increased volume of fluid on the right f rontal lobe anteriorly and along the right frontoparietal lobe vertex with greater deformity of the frontal parietal cortex, at the vertex the fluid has maximum thickness of 1.5 cm on coronal image 21, and maximum thickness anterior of the right frontal lobe on axial image 17. On the prior exam the fluid had a maximum thickness at the vertex of 1.2 cm and along the anterior right frontal lobe of 0.8 cm. There is 0.6 cm of right to left subfalcine midline shift which has increased, previously was 0.4 cm. There appears to be some hyperattenuating edema of the right anterior frontal lobe white matter new from the prior study there is no hypodense edema of the overlying cortical vanegas matter. No hydrocephalus. IMPRESSION: 1. Suboccipital craniectomy and right frontoparietal craniotomy, the right sided subdural drainage catheter on the prior exam has been removed. There is a mixed density predominantly hypodense right hemispheric subdural hematoma, the density of the fluid has decreased since the prior exam typical of an aging subacute hematoma, the size of the collection has mildly increased since the prior exam which contributes to greater mass effect upon the right hemisphere and midline shift. See above. 2. There is a new area of hypodense vasogenic edema of the right anterior f rontal lobe since the prior exam. There is no overlying cortical vanegas matter edema evident. The etiology of this new edema is indeterminate, perhaps this is related to greater compression of the right frontal lobe since the prior study. Ischemic related edema or sequela of cerebritis would be secondary considerations. This may be further assessed with MRI. FOR INTERNAL CODING PURPOSES Critical result: Findings discussed with MAY ALMEIDA MD at 08/18/2021 2:07 AM. RESULT CODE: (C) Electronically signed by: Louann Whitaker MD (08/18/2021 2:20 AM) [facility] [place] and SIGNED BY: LOUANN WHITAKER MD DATE: 08/18/21 [id number] Course & Med Decision Making: Course & Med Decision Making Pertinent Labs and Imaging studies reviewed. (See chart for details) Patient recently had a procedure sent to facility however we are unable to care for patient because our neurosurgeon is not in-house for this week. Patient family would like to go to she sees other specialist there. They are unable to accept me as a do not have availability. Calls placed to [facility] and [facility]. Discussed case with Dr. Mathews with neurosurgery at [facility], she will except patient. Patient will be accepted to medical team. Report given to Aide OCHOA, accepting physician Dr. Torres [] J Carlos Disclaimer: J Carlos Disclaimer: This electronic medical record was generated, in whole or in part, using a voice recognition dictation system. Departure Departure Impression: Primary Impression: Midline shift of brain due to hematoma Disposition: 02 SHORT TERM HOSPITAL Condition: GUARDED Referrals: UNKNOWN PCP NAME (PCP) MAY ALMEIDA MD Aug 18, 2021 01:42
[2021-08-18] MEDS ORDERED: IV RINGERS,LACTATED 1000ML 1,000 ML IV SCH (02:00)
[2021-08-18 02:15] LABS: BASO # 0.1 x10^3/uL (0.0-0.2); BASO % 1 % (0-3); EOS % 0 % (0-3); HEMOGLOBIN 12.2 g/dL (12.0-15.5); LYMPH # 4.2 x10^3/uL (1.0-4.8); LYMPH % 37 % (24-48); MEAN CORPUSCULAR HEMOGLOBIN 31 pg (25-35); MEAN CORPUSCULAR HGB CONC 33 g/dL (31-37); MEAN CORPUSCULAR VOLUME 93 fL (79-100); MONO # 0.8 x10^3/uL (0.0-1.1); MONO % 7 % (0-9); NEUT # 6.3 x10^3/uL (1.8-7.7); NEUT % 55 % (31-73); PLATELET COUNT 234 x10^3/uL (140-400); RED BLOOD COUNT 3.99 x10^6/uL (3.50-5.40); RED CELL DISTRIBUTION WIDTH 19.9 % (11.5-14.5); WHITE BLOOD COUNT 11.5 x10^3/uL (4.0-11.0)
--- NOTE | 2021-08-18 02:23 | RAD ---
CT head without contrast PQRS statement: CT scans at this facility use dose reduction including either automated exposure cont rol, iterative reconstructions, and /or weight based radiation dosing via mA and kV modification when appropriate to reduce radiation dose to as low as reasonably achievable. HISTORY: Code stroke. Left upper extremity and facial weakness. Altered mental status. Recent subdura l hematoma. COMPARISON: CT head August 08, 2021. FINDINGS: Suboccipital craniectomy. Right frontoparietal mathew hole. The subdural drainage catheter on the prior exam has been removed. There is right hemispheric subdural hematoma with decreased density since the prior exam however there appears to be mildly increased volume of fluid on the right front al lobe anteriorly and along the right frontoparietal lobe vertex with greater deformity of the front al parietal cortex, at the vertex the fluid has maximum thickness of 1.5 cm on coronal image 21, and maximum thickness anterior of the right frontal lobe on axial image 17. On the prior exam the fluid h ad a maximum thickness at the vertex of 1.2 cm and along the anterior right frontal lobe of 0.8 cm. T here is 0.6 cm of right to left subfalcine midline shift which has increased, previously was 0.4 cm. There appears to be some hyperattenuating edema of the right anterior frontal lobe white matter new from the prior study there is no hypodense edema of the overlying cortical vanegas matter. No hydrocepha daniel. IMPRESSION: 1. Suboccipital craniectomy and right frontoparietal craniotomy, the right sided subdural drainage ca theter on the prior exam has been removed. There is a mixed density predominantly hypodense right hem ispheric subdural hematoma, the density of the fluid has decreased since the prior exam typical of an aging subacute hematoma, the size of the collection has mildly increased since the prior exam which contributes to greater mass effect upon the right hemisphere and midline shift. See above. 2. There is a new area of hypodense vasogenic edema of the right anterior frontal lobe since the prio r exam. There is no overlying cortical vanegas matter edema evident. The etiology of this new edema is i ndeterminate, perhaps this is related to greater compression of the right frontal lobe since the prio r study. Ischemic related edema or sequela of cerebritis would be secondary considerations. This may be further assessed with MRI. FOR INTERNAL CODING PURPOSES Critical result: Findings discussed with MAY ALMEIDA MD at 08/18/2021 2:07 AM. RESULT CODE: (C) Electronically signed by: Jed Whitaker MD (08/18/2021 2:20 AM) [facility]
[2021-08-18 02:28] LABS: PROTHROMBIN TIME PATIENT 15.1 SEC (11.7-14.0)
--- NOTE | 2021-08-18 02:28 | RAD ---
AP chest x-ray HISTORY: Stroke. Comparison: Chest x-ray July 27, 2021 FINDINGS: Mild cardiomegaly is stable. Mediastinal silhouette is normal. No pneumothorax, pulmonary o pacities or pleural effusion. Small right C7 cervical rib. IMPRESSION: No acute process. Electronically signed by: Jed Whitaker MD (08/18/2021 2:26 AM) [facility]
--- NOTE | 2021-08-18 02:35 | EKG ---
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
[2021-08-18 03:06] LABS: CALCIUM 9.7 mg/dL (8.5-10.1); CREATININE 0.9 mg/dL (0.6-1.0); GFR 61.7; POTASSIUM 4.4 mmol/L (3.5-5.1)
[2021-08-18 03:11] LABS: ALBUMIN 3.6 g/dL (3.4-5.0); ALBUMIN/GLOBULIN RATIO 1.1 (1.0-1.7); TOTAL BILIRUBIN 0.7 mg/dL (0.2-1.0)
[2021-08-18] MEDS ORDERED: CONTRAST GIVEN. MC PRN (03:30)
[2021-08-18] MEDS ORDERED: IOHEXOL 300 MG/ML 100ML VIAL. IV ONE (03:30)
--- NOTE | 2021-08-18 04:22 | RAD ---
CT angiography head and neck with contrast Stenosis calculations for CT, MR, and conventional angiography are based upon measurements of the dis elizabeth ICA diameter in accordance with the NASCET methodology. Stenosis calculations for carotid ultraso und studies are derived from validated velocity criteria which are known to correlate with the NASCET methodology. PQRS statement: CT scans at this facility use dose reduction including either automated exposure cont rol, iterative reconstructions, and /or weight based radiation dosing via mA and kV modification when appropriate to reduce radiation dose to as low as reasonably achievable. HISTORY: Left facial weakness. Left upper extremity weakness. Contrast: 75 mL of 100 intravenous contrast. 3-D MIP reconstructions of the arteries were acquired. COMPARISON: CT head August 18, 2013 prior studies. CTA neck findings: Calcified plaque aortic arch. No ostial stenosis of the vessels from the aortic ar ch. Left vertebral artery origin is from the aorta. Codominant vertebral arteries demonstrate no plaq ue, thrombus, dissection, stenosis or occlusion. Both carotid arteries demonstrate retropharyngeal segments. There is mild calcified plaque at the bif urcation of both carotid arteries without significant stenosis with narrowing of no more than 10%. No dissection, thrombus, significant stenosis or occlusion of the carotid arteries in the neck. Small subcentimeter calcified nodule lower thyroid. CTA head findings: Calcified cavernous carotid arteries. Patent right posterior communicating artery. Patent anterior communicating artery. No thrombus, occlusion or aneurysm. The right middle cerebral artery at its bifurcation and the peripheral arterial branches through the M2 and smaller order branc hes are diffusely much smaller in caliber with less contrast distention relative to the contralateral MCA, there is no plaquing evident or filling defect, given its unilateral nature narrowing and given the right-sided hematoma this raises the possibility of right-sided vasospasm. Secondarily some comp ression of the right hemisphere from the subdural hematoma contributing to compression of the caliber of the right middle cerebral arterial branches would also be a possibility but considered less likel y. IMPRESSION: 1. No large vessel occlusion. 2. The right middle cerebral artery at its bifurcation and peripherally involving the smaller periphe ral arterial branches is asymmetrically smaller in caliber with less contrast distention diffusely. T his raises the possibility of vasospasm associated with the right-sided subdural hematoma. Given the unilateral and diffuse nature of involvement this would be atypical for atherosclerotic-related steno tic disease. See above. FOR INTERNAL CODING PURPOSES Critical result: Findings discussed with MAY ALMEIDA MD at 08/18/2021 4:08 AM. RESULT CODE: (C) Electronically signed by: Jed Whitaker MD (08/18/2021 4:19 AM) [facility]
[2021-08-18 06:43] VITALS: BP 168/81
== END 2021-08-18 07:20 | disposition short-term general hospital (02) ==
LOC: ER 01:35
DX: S00.93XA Contusion of unspecified part of head, initial encounter (principal); G93.89 Other specified disorders of brain; R29.810 Facial weakness; R47.81 Slurred speech; R41.0 Disorientation, unspecified; Z88.0 Allergy status to penicillin; Z88.2 Allergy status to sulfonamides; Z88.8 Allergy status to other drugs, medicaments and biological substances; Z86.73 Personal history of transient ischemic attack (TIA), and cerebral infarction without residual deficits; X58.XXXA Exposure to other specified factors, initial encounter; Y93.89 Activity, other specified; Y92.89 Other specified places as the place of occurrence of the external cause; Y99.8 Other external cause status
CPT/HCPCS: 36415; 70450; 70496; 70498; 71045; 80053; 82962; 84484; 85025; 85610; 85730; 93005; 96360; 96361; 99285; J7120